=== PATIENT | female | born 1960 | race Caucasian/White ===

== ENCOUNTER 2020-07-07 07:45 | Outpatient (REF) | payer OTHER, SELFPAY ==
[2020-07-07 11:34] LABS: Hematocrit 40.1 % (37-47); Hemoglobin 13.2 g/dl (12.0-16.0); Mean Corpuscular HGB Conc 32.9 g/dl (31.0-35.0); Mean Corpuscular Hemoglobin 31.2 pg (27.0-33.0); Mean Corpuscular Volume 94.8 fL (80-98); Mean Platelet Volume 10.1 fL (9.4-12.3); Platelet Count 312 X10*3/uL (160-400); Red Blood Count 4.23 X10*6/uL (4.20-5.50); Red Cell Distribution Width 12.4 % (11.0-16.0); White Blood Count 3.6 X10*3/uL (4.8-10.8)
[2020-07-07 11:52] LABS: Alanine Aminotransferase 21 U/L (0-31); Albumin Level 4.2 g/dL (3.5-5.0); Alkaline Phosphatase 63 U/L (39-117); Anion Gap 11 (12-20); Aspartate Amino Transferase 24 U/L (5-31); Bilirubin Total 0.5 mg/dL (0.0-1.0); Blood Urea Nitrogen 12 mg/dL (9-16); Calcium 9.5 mg/dL (8.4-10.2); Carbon Dioxide 29 mmol/L (22-29); Chloride 105 mmol/L (96-108); Cholesterol 175 mg/dL; Estimated Glomerular Filt Rate > 60; Glucose Fasting 78 mg/dL (60-99); HDL Cholesterol 69 mg/dL; LDL Cholesterol Calculated 95 mg/dl; Potassium 4.1 mmol/L (3.3-5.1); Sodium 141 mmol/L (135-145); Triglycerides 58 mg/dL
== END 2020-07-07 07:46 | disposition home or self-care (01) ==
LOC: HO.HMGCLDS 07:45
PROVIDERS: PCP Internal Medicine; Visit Provider Internal Medicine
DX: Z00.00 Encounter for general adult medical examination without abnormal findings (principal); E78.00 Pure hypercholesterolemia, unspecified
CPT/HCPCS: 36415; 80053; 80061; 85027

== ENCOUNTER 2022-03-18 08:17 | Outpatient (REF) | payer OTHER, SELFPAY ==
[2022-03-18 11:23] LABS: MANUAL DIFF FLAG NO
[2022-03-18 11:35] LABS: Basophils Percent Auto 0.9 % (0-2); Eosinophils Absolute Auto 0.1 X10*3/uL (0.0-0.4); Eosinophils Percent Auto 3.2 % (0-4); Hematocrit 40.7 % (37.0-47.0); Hemoglobin 13.3 g/dl (12.0-16.0); Imm Gran Abs Auto 0.01 X10*3/uL (0.00-0.03); Imm Gran Pct Auto 0.2 % (0.0-0.4); Lymphocytes Absolute Auto 1.4 X10*3/uL (1.2-4.9); Mean Corpuscular HGB Conc 32.7 g/dl (31.0-35.0); Mean Corpuscular Hemoglobin 30.6 pg (27.0-33.0); Mean Corpuscular Volume 93.8 fL (80.0-98.0); Mean Platelet Volume 10.2 fL (9.4-12.3); Monocytes Absolute Auto 0.5 X10*3/uL (0.1-1.2); Monocytes Percent Auto 10.2 % (2-11); Neutrophils Absolute Auto 2.4 x10*3/uL (2.0-8.3); Neutrophils Percent Auto 53.5 % (45-73); Platelet Count 314 X10*3/uL (160-400); Red Blood Count 4.34 X10*6/uL (4.20-5.50); Red Cell Distribution Width 12.5 % (11.0-16.0); White Blood Count 4.4 X10*3/uL (4.8-10.8)
[2022-03-18 12:30] LABS: Erythrocyte Sedimentation Rate 7 MM/HR (0-20)
[2022-03-18 13:10] LABS: Alanine Aminotransferase 17 U/L (0-31); Albumin Level 4.2 g/dL (3.5-5.0); Albumin Level 4.3 g/dL (3.5-5.0); Alkaline Phosphatase 59 U/L (39-117); Anion Gap 12 (12-20); Anion Gap 13 (12-20); Aspartate Amino Transferase 23 U/L (5-31); Aspartate Amino Transferase 24 U/L (5-31); Bilirubin Total 0.6 mg/dL (0.0-1.0); Blood Urea Nitrogen 18 mg/dL (9-16); C Reactive Protein < 0.04 mg/dL (< or = 0.50); Calcium 9.7 mg/dL (8.4-10.2); Calcium 9.8 mg/dL (8.4-10.2); Carbon Dioxide 27 mmol/L (22-29); Carbon Dioxide 28 mmol/L (22-29); Chloride 106 mmol/L (96-108); Cholesterol 188 mg/dL; Estimated Glomerular Filt Rate > 60; Glucose Fasting 87 mg/dL (60-99); HDL Cholesterol 69 mg/dL; LDL Cholesterol Calculated 107 mg/dl; Potassium 4.2 mmol/L (3.3-5.1); Potassium 4.3 mmol/L (3.3-5.1); Sodium 142 mmol/L (135-145); Total Protein 7.1 g/dL (6.5-8.0); Triglycerides 62 mg/dL
[2022-03-18 13:16] LABS: TSH reflex Free T4 2.34 uIU/mL (0.32-4.0); Vitamin D 25-OH Total 64.7 ng/mL (>30)
== END 2022-03-18 08:18 | disposition home or self-care (01) ==
LOC: HO.HMGCLDS 08:17
PROVIDERS: Absent Provider Internal Medicine; PCP Internal Medicine; Visit Provider Internal Medicine
DX: Z00.00 Encounter for general adult medical examination without abnormal findings (principal); E78.00 Pure hypercholesterolemia, unspecified; E55.9 Vitamin D deficiency, unspecified; Z79.899 Other long term (current) drug therapy
CPT/HCPCS: 36415; 80051; 80053; 80061; 82040; 82306; 82310; 84443; 84450; 84460; 85025; 85652; 86140

== ENCOUNTER 2023-03-03 10:27 | Outpatient (AMB) | payer OTHER, SELFPAY ==
[2023-03-03 10:28] VITALS: BP 126/76; PULSE 69; O2SAT 100; BMI 19.6
--- NOTE | 2023-03-03 10:28 | MHC.PC.OV ---
Vital Signs 03/03/23 10:28 Height 5 ft 7 in Weight 125 lb BMI 19.6 BP 126/76 Blood Pressure Location Lt brachial Position Sitting Pulse 69 Pulse Source Pulse Oximeter Pulse Oximetry (%) 100 Oxygen Delivery Method Room Air Intake Visit Reasons: Annual Physical Intake Note: Pt is here today for PE. Allergies leflunomide [Arava] Adverse Reaction (Unknown, Verified 03/03/23 10:30) low wbc methotrexate Adverse Reaction (Unknown, Verified 03/03/23 10:30) low wbc NIFEdipine ER Adverse Reaction (Unknown, Uncoded 03/03/23 10:30) leg swelling, rash Medication List - Last Reconciled 03/03/23 by Kae Martell MD adalimumab 40 mg subcut Q2W compress.stocking,knee,reg,med As directed 10-20mmHg hydroxychloroquine 300 mg PO DAILY simvastatin 20 mg PO QPM Tobacco use date assessed: 03/03/23 Fall risk assessment: No Falls in past year Last assessed Fall Risk: 03/03/23 Dental Screening Dental Screen Date: 03/03/23 Did you have a dental visit in the last 12 months?: Yes Did you have a dental problem in the last 6 months where you did not have access to dental care?: No Was dental information given to patient?: Patient has dentist HPI Annual Physical HPI Details Patient presents for physical. She complains of lower extremity discomfort heaviness and swollen painful area on the right calf for few weeks. She started working compression knee-highs with some relief of her heaviness. Patient follows up with gang pusher for RA controlled on current medications. [facility] Medical History Annual physical exam Raynaud's disease Basal cell carcinoma Osteoporosis Rheumatoid arthritis Hypercholesterolemia Surgical History S/P hysterectomy H/O colonoscopy Family History Father Pacemaker Diabetes CVD (cardiovascular disease) Stroke Mother HTN (hypertension) Stroke Cancer Social History Housing: House Patient Tobacco Use Status: Never used Tobacco e-Cigarette/Vaping Use: Never Used Current occupational status: employed Cognitive needs: No Hearing needs: No Vision needs: Yes Questionnaire PHQ-9 Over the last 2 weeks, how often have you been bothered by any of the following problems? 1. Little interest or pleasure in doing things: not at all 2. Feeling down, depressed, or hopeless: not at all 3. Trouble falling or staying asleep, or sleeping too much: not at all 4. Feeling tired or having little energy: not at all 5. Poor appetite or overeating: not at all 6. Feeling bad about yourself - or that you are a failure or have let yourself or your family down: not at all 7. Trouble concentrating on things, such as reading the newspaper or watching television: not at all 8. Moving or speaking so slowly that other people could have noticed. Or the opposite - being so fidgety or restless that you have been moving around a lot more than usual: not at all 9. Thoughts that you would be better off or of hurting yourself in some way: not at all Total score: 0 Depression Screening Interpretation: Negative Depression Screening Done: Yes Source: Developed by Drs. Art Johnson, Alla Cooper, Rodríguez Wu and colleagues, with an educational tyrell from [employer]. Thrive Questionnaire Date Thrive assessed: 03/03/23 I am a: Patient What is your living situation today?: I have a steady place to live Within the past 12 months, did the food you bought not last and you didn't have the money to get more?: Never true Within the past 12 months, did you worry whether your food would run out before you got money to buy more?: Never true Do you have trouble paying for medicines?: No Do you have trouble getting transportation to medical appointments?: No Do you have trouble paying your heating and electricity bill?: No Do you have trouble taking care of your child, family member or friend?: No Do you have trouble with day-to-day activities such as bathing, preparing meals, shopping, managing finances, etc.?: No Are you currently unemployed and looking for a job?: No Are you interested in more education?: No Please select the resources that you would like help with: None AUDIT C Alcohol Use Questionnaire (AUDIT-C) 1. How often do you have a drink containing alcohol?: Monthly or less 2. How many drinks containing alcohol do you have on a typical day when you are drinking?: 1 or 2 3. How often do you have six or more drinks on one occasion?: Never Total Score: 1 DELFINO-7 AMB Questionnaire DELFINO-7 Date DELFINO - 7 assessed: 03/03/23 Feeling nervous, anxious, or on edge: 0 = Not at all Not being able to stop or control worryin = Not at all Worrying too much about different things: 0 = Not at all Trouble relaxin = Not at all Being so restless that it is hard to sit still: 0 = Not at all Becoming easily annoyed or irritable: 0 = Not at all Feeling afraid as if something awful might happen: 0 = Not at all Total DELFINO-7 score (0-4 normal; 5-9 mild; 10-14 moderate; 15-21 severe): 0 Source: Developed by Drs. Art Johnson, Alla Cooper, Rodríguez Wu and colleagues, with an educational tyrell from [employer]. Review of Systems Const All systems reviewed & are unremarkable except as noted in HPI and below Reports no additional complaints Eyes Reports no additional complaints ENT Reports no additional complaints Card Reports no additional complaints Resp Reports no additional complaints GI Reports no additional complaints Reports no additional complaints Physical exam (Primary Care) Vital Signs: Last Vital Signs Pulse 69 03/03/23 10:28 BP 126/76 03/03/23 10:28 Pulse Ox 100 03/03/23 10:28 Oxygen Delivery Method Room Air 03/03/23 10:28 BMI result Body Mass Index 19.6 Tobacco/Smoking Status: Tobacco use Status Tobacco use date assessed 03/03/23 03/03/23 10:35 Patient Tobacco Use Status Never used Tobacco 03/03/23 10:30 e-Cigarette/Vaping Use Never Used 03/03/23 10:30 PHQ-9: PHQ-9 Score PHQ-9: Total score 0 03/03/23 10:37 Depression Screening Interpretation: Negative Thrive Assessment: Date of Thrive Assessment Date Thrive assessed 03/03/23 03/03/23 10:37 Const General: no acute distress HENMT Head: Yes normal to inspection General nose exam: Normal external nose present Throat: Yes posterior oropharynx normal Neck Neck: Yes supple Resp Effort & Inspection: normal respiratory effort Auscultation: clear to auscultation bilaterally Cardio Rhythm: regular rhythm Heart sounds: S1 normal heart sound present and S2 normal heart sound present GI Inspection: Yes normal to inspection Palpation (GI): Soft to palpation Percussion: Yes normal to percussion Auscultation: normal bowel sounds Extrem Other: Chronic venous stasis discoloration on both lower extremities, right medial calf area 5 cm x 3cm erythema, swelling and tenderness Assessment and Plan Assessment & Plan (1) Localized swelling of right lower extremity: Code(s): R22.41 - Localized swelling, mass and lump, right lower limb Plan: Obtain venous Doppler to rule out DVT, if negative patient was advised to take ibuprofen 400 mg 3 times a day for 1 week for superficial thrombophlebitis (2) Varicose veins of bilateral lower extremities with pain: Code(s): I83.813 - Varicose veins of bilateral lower extremities with pain Plan: Referred to vascular surgeon, patient will continue to work compression knee-highs (3) Annual physical exam: Code(s): Z00.00 - Encounter for general adult medical examination without abnormal findings Plan: Well-balanced diet regular physical activity discussed with the patient, she is up to date with mammogram and will be referred to GI for colonoscopy (4) Hypercholesterolemia: Code(s): E78.00 - Pure hypercholesterolemia, unspecified Plan: Continue simvastatin Orders: Orders Complete Blood Count Auto Diff Today E78.00 - Pure hypercholesterolemia, unspecified, Z00.00 - Encounter for general adult medical examination without abnormal findings Complete Blood Count Auto Diff 365 Days E78.00 - Pure hypercholesterolemia, unspecified, Z00.00 - Encounter for general adult medical examination without abnormal findings Lipid Panel 365 Days E78.00 - Pure hypercholesterolemia, unspecified, Z00.00 - Encounter for general adult medical examination without abnormal findings US venous duplex LE RT Today R22.41 - Localized swelling, mass and lump, right lower limb Comprehensive [place]. Panel Fast Today E78.00 - Pure hypercholesterolemia, unspecified, Z00.00 - Encounter for general adult medical examination without abnormal findings Lipid Panel Today E78.00 - Pure hypercholesterolemia, unspecified, Z00.00 - Encounter for general adult medical examination without abnormal findings TSH reflex Free T4 Today E78.00 - Pure hypercholesterolemia, unspecified, Z00.00 - Encounter for general adult medical examination without abnormal findings Comprehensive [place]. Panel Fast 365 Days E78.00 - Pure hypercholesterolemia, unspecified, Z00.00 - Encounter for general adult medical examination without abnormal findings Referrals Vascular Surgery Referral I83.813 - Varicose veins of bilateral lower extremities with pain Gastroenterology Referral Z00.00 - Encounter for general adult medical examination without abnormal findings Medications: New simvastatin 10 mg PO DAILY 90 tabs 3RF Coding Level of Care Code Est Pt Prev Care >65y(24745) Diagnoses Localized swelling of right lower extremity R22.41 Varicose veins of bilateral lower extremities with pain I83.813 Annual physical exam Z00.00 Hypercholesterolemia E78.00
== END 2023-03-03 15:03 | disposition home or self-care (01) ==
PROVIDERS: PCP Internal Medicine; Visit Provider Internal Medicine
DX: R22.41 Localized swelling, mass and lump, right lower limb (principal); I83.813 Varicose veins of bilateral lower extremities with pain; Z00.00 Encounter for general adult medical examination without abnormal findings; E78.00 Pure hypercholesterolemia, unspecified
CPT/HCPCS: 99397

== ENCOUNTER 2023-03-03 12:06 | Outpatient (REF) | payer OTHER, SELFPAY | END 2023-03-03 12:07 | disposition home or self-care (01) | LOC: HO.US 12:06 | PROVIDERS: PCP Internal Medicine; Visit Provider Internal Medicine | DX: R22.41 Localized swelling, mass and lump, right lower limb (principal) | CPT/HCPCS: 93971 ==

== ENCOUNTER 2023-04-06 09:16 | Outpatient (AMB) | payer OTHER, SELFPAY ==
--- NOTE | 2023-04-06 09:17 | A.OFFVIS_ITS ---
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 Complaints include pain over varicosities, swelling of lower extremities, cramping, fatigue, and heaviness of the lower extremities. She is in particular concerned about the discoloration of bilateral calfs It has been affecting there daily activities including walking and exercise. It is noted more so in right leg. Patient notes previous ablation and sclerotherapy by Dr. Enamorado at [facility]. Patient denies any history of DVT/ PE. Patient denies any history of phlebitis. Trial of compression includes - [id number] They now present for vascular evaluation regarding their varicose veins. [facility] Medical History Annual physical exam Raynaud's disease Basal cell carcinoma Osteoporosis Rheumatoid arthritis Hypercholesterolemia Surgical History S/P hysterectomy H/O colonoscopy Family History Father Pacemaker Diabetes CVD (cardiovascular disease) Stroke Mother HTN (hypertension) Stroke Cancer Social History Housing: House Patient Tobacco Use Status: Never used Tobacco e-Cigarette/Vaping Use: Never Used Current occupational status: employed Cognitive needs: No Hearing needs: No Vision needs: Yes Review of Systems Const Reports as per HPI ENT Reports no additional complaints Card Denies chest pain, Denies chest pain at rest and Denies chest pain with activity Resp Denies chest congestion and Denies cough GI Reports no additional complaints Musc Details: pain over varicosities, aching of lower extremities, swelling, cramping, heaviness and tiredness, itching Denies abnormal gait Skin/Breast Reports pruritus and Denies wounds Neuro Reports no additional complaints and Denies abnormal gait Psych Denies no additional complaints Physical Exam Vital Signs: Last Vital Signs Pulse 68 04/06/23 09:26 BP 110/70 04/06/23 09:26 BMI result Body Mass Index 19.3 Const General: cooperative, healthy appearing and comfortable Orientation/consciousness: oriented to person, oriented to place and oriented to time Neck Carotids: no bruits Chest Chest palpation & inspection: normal inspection of the chest and normal palpation of entire chest wall Resp Effort & Inspection: normal respiratory effort and able to speak in complete sentences Cardio Rate: regular rate Heart sounds: S1 normal heart sound present and S2 normal heart sound present Peripheral pulses: Peripheral pulses 2+ throughout GI Inspection: Yes normal to inspection Skin Other: +2 edema, multiple spider telangiectasias and skin discoloration at bilateral ankles CEAP Classification C4 - skin color changes Ep - Etiology Primary As - superficial veins P - reflux General skin exam: dry skin Neuro General: oriented to person, oriented to place and oriented to time Extrem Right lower extremity: full ROM, normal capillary refill and edema Left lower extremity: full ROM, normal capillary refill and edema Psych Mental Status: mental status grossly normal Assessment & Plan Assessment & Plan (1) Varicose veins of right lower extremity with inflammation: Code(s): I83.11 - Varicose veins of right lower extremity with inflammation Plan: In short, the patient has evidence of venous insufficiency. She has had previous treatments and has been fairly compliant with her compression stockings. I have discussed the pathophysiology with the patient. In addition I have provided informational material regarding venous disease to the patient. We have discussed conservative measures including compression, elevation, and exercise. I have also provided a handout regarding appropriate use of compression stockings and where to purchase good compression stockings as well. I have taken the liberty of ordering venous insufficiency testing with the patient. This will give us more information as to her prior treatments and procedures. They will follow up with me after testing. The patient had an opportunity to ask questions regarding the treatment plan. All questions were answered. Imaging studies, laboratory studies and physical exam results were discussed and reviewed in detail. No major barriers to understanding were identified. The patient expressed understanding and agreement with the above treatment plan. The patient is aware they should contact our office by phone for worsening of the current condition or the appearance of new symptoms. Thank you for allowing me to participate in the vascular care of this patient. If you have any questions or concerns regarding the treatment for the above condition please do not hesitate to contact me. The office telephone contact is [phone]. This note is constructed using voice recognition software. While every effort has been made to ensure accuracy, car builder errors may have been included. Thank you for allowing me to participate in the care of your patient. Yours sincerely, Marlon Leiva MD, FACS, R.P.V.I. Orders: Orders US venous insuf bilat 1 Week I83.11 - Varicose veins of right lower extremity with inflammation Coding Level of Care Code New Pt Level 4 (79544) Diagnoses Varicose veins of right lower extremity with inflammation I83.11
[2023-04-06 09:26] VITALS: BP 110/70; PULSE 68; BMI 19.3
== END 2023-04-06 09:52 | disposition home or self-care (01) ==
PROVIDERS: PCP Internal Medicine; Visit Provider Surgery Vascular Surgery
DX: I83.11 Varicose veins of right lower extremity with inflammation (principal)
CPT/HCPCS: 99203

== ENCOUNTER → 2023-04-06 09:16 | Outpatient (BNVA) | payer OTHER, SELFPAY | PROVIDERS: PCP Internal Medicine; Visit Provider Surgery Vascular Surgery ==

== ENCOUNTER 2023-04-19 10:20 | Outpatient (REF) | payer OTHER, SELFPAY ==
--- NOTE | ~2023-04-19 | US_ITS ---
EXAMINATION: US LOWER EXTREMITY VENOUS (REFLUX EXAM), BILATERAL CLINICAL INFORMATION: Chronic disease insufficiency with lower extremity varicose veins with inflammation. History of prior ablation and sclerotherapy COMPARISON: None. TECHNIQUE: Color flow triplex imaging and compression Doppler was performed to evaluate both the deep and the superficial systems bilaterally. To evaluate the superficial system, the examination was performed in the upright position. Color-flow Doppler ultrasound and compression ultrasound were utilized. In addition, maneuvers were utilized to demonstrate reflux. FINDINGS: 1. DEEP VENOUS ULTRASOUND OF THE RIGHT LOWER EXTREMITY: Common Femoral Vein: Compressible, normal respiratory variation and augmented flow. Femoral Vein: Compressible, normal color flow and augmentation. Popliteal Vein: Compressible, normal augmentation. Deep Reflux: Deep venous reflux is seen in the superficial femoral vein measuring 1944 ms. Deep venous reflux seen in the popliteal vein measuring 1644 ms. There is no evidence of a Fernandes's cyst. 2. SUPERFICIAL ULTRASOUND WITH DOPPLER OF RIGHT LOWER EXTREMITY: GREAT SAPHENOUS VEIN: Saphenofemoral Junction: 0.4 cm; Reflux: 0 ms Proximal Thigh: 0.3 cm; Reflux: 0 ms Mid Thigh: 0.2 cm; Reflux: 0 ms Distal Thigh: 0.1 cm; Reflux: 0 ms At Knee: 0.2 cm; Reflux: 0 ms Proximal Calf: 0.2 cm; Reflux: 0 ms Mid Calf: 0.3 cm; Reflux: 1984 ms Distal Calf: 0.3 cm; Reflux: 1584 ms DUPLICATED MEDIAL GREAT SAPHENOUS VEIN: Diameter: None imaged Reflux: NA DUPLICATED LATERAL GREAT SAPHENOUS VEIN: Diameter: 0.2 cm Reflux: None SMALL SAPHENOUS VEIN: Saphenopopliteal Junction: 0.9 cm; Reflux: 2208 ms Mid: 0.6 cm; Reflux: 2248 ms Distal: 0.5 cm; Reflux: 1688 ms VEIN OF GIACOMINI: Size: NA Reflux: NA PERFORATORS: Location: Proximal and mid calf extending into the residual great saphenous vein Size: 0.2 to 0.4 cm Reflux: Ranging from 1032 ms to 2320 ms VARICOSITIES: Location: Proximal and mid posterior calf off the small saphenous vein and proximal medial calf off the great saphenous vein Size: 0.4 to 0.5 cm Reflux: Ranging from 924 to 2372 ms 3. DEEP VENOUS ULTRASOUND OF THE LEFT LOWER EXTREMITY: Common Femoral Vein: Compressible, normal respiratory variation and augmented flow. Femoral Vein: Compressible, normal color flow and augmentation. Popliteal Vein: Compressible, normal augmentation. Deep Reflux: There is no evidence of reflux in the deep system in either the common femoral vein, superficial femoral or the popliteal vein. There is no evidence of a Fernandes's cyst. 4. SUPERFICIAL ULTRASOUND WITH DOPPLER OF LEFT LOWER EXTREMITY: GREAT SAPHENOUS VEIN: Saphenofemoral Junction: 0.9 cm; Reflux: 0 ms Proximal Thigh: 0.7 cm; Reflux: 1980 ms Mid Thigh: 0.6 cm; Reflux: 2368 ms Distal Thigh: 0.9 cm; Reflux: 2360 ms At Knee: 0.9 cm; Reflux: 2040 ms Proximal Calf: 0.6 cm; Reflux: 2092 ms Mid Calf: 0.7 cm; Reflux: 2376 ms Distal Calf: 0.3 cm; Reflux: 2244 ms DUPLICATED MEDIAL GREAT SAPHENOUS VEIN: Diameter: None imaged Reflux: NA DUPLICATED LATERAL GREAT SAPHENOUS VEIN: Diameter: 0.3 cm Reflux: None SMALL SAPHENOUS VEIN: Saphenopopliteal Junction: 0.4 cm; Reflux: 0 ms Mid: 0.2 cm; Reflux: 2156 ms Distal: 0.3 cm; Reflux: 2104 ms VEIN OF GIACOMINI: Size: 0.2 cm Reflux: None PERFORATORS: Location: Medial distal thigh into the great saphenous vein and posterior distal calf into the small saphenous vein Size: Ranging from 0.2 to 0.6 cm Reflux: 2280 ms in the posterior calf and 2376 ms in the distal thigh VARICOSITIES: Location: Posterior mid calf off the small saphenous vein, medial mid to thigh, proximal and mid calf off the great saphenous veins Size: Ranging from 0.3 to 0.4 cm Reflux: Ranging from 676 ms to 3132 ms US/US venous insuf bilat IMPRESSION: Right: Previously treated great saphenous vein from the proximal thigh to the calf. Residual great saphenous vein in the calf is reconstituted by parking lot spotter veins and multiple varicose veins. Dilated right small saphenous vein severe reflux and multiple large varices. Left: Dilated left great saphenous vein with severe reflux. Dilated small saphenous vein with segmental reflux as described above. Multiple branching varicose veins off the great and small saphenous vein
== END 2023-04-19 10:21 | disposition home or self-care (01) ==
LOC: HO.US 10:20
PROVIDERS: PCP Internal Medicine; Visit Provider Surgery Vascular Surgery
DX: I83.11 Varicose veins of right lower extremity with inflammation (principal)
CPT/HCPCS: 93970

== ENCOUNTER 2023-05-23 13:52 | Outpatient (AMB) | payer OTHER, SELFPAY ==
--- NOTE | 2023-05-23 14:01 | MHC.OFFVIS ---
Intake Vital Signs 05/23/23 14:02 Height 5 ft 7 in Weight 123 lb BMI 19.3 Intake Visit Reasons: F/U US 04/19/23 Intake Note: follow up US for bilateral LE VV. Pt states that right LE is more discolored then the Left LE. Has bilateral LE swelling and has been wearing compression stockings, states that she has sensitivity where the discoloration is. Accompanied by: Self / Same As Patient Allergies leflunomide [Arava] Adverse Reaction (Unknown, Verified 05/23/23 14:07) low wbc methotrexate Adverse Reaction (Unknown, Verified 05/23/23 14:07) low wbc NIFEdipine ER Adverse Reaction (Unknown, Uncoded 05/23/23 14:07) leg swelling, rash HPI F/U US 04/19/23 HPI Details Very pleasant 63-year-old female presents for follow-up regarding venous insufficiency. She in general has some mild swelling but has these persistent skin color changed areas in the medial aspect of her calfs. He has been a source of pain and discomfort for her. Of note she does have a trial of compression stockings which have provided minimal relief. She now presents for follow-up with venous insufficiency testing. [facility] Medical History Annual physical exam Raynaud's disease Basal cell carcinoma Osteoporosis Rheumatoid arthritis Hypercholesterolemia Surgical History S/P hysterectomy H/O colonoscopy Family History Father Pacemaker Diabetes CVD (cardiovascular disease) Stroke Mother HTN (hypertension) Stroke Cancer Social History Housing: House Patient Tobacco Use Status: Never used Tobacco e-Cigarette/Vaping Use: Never Used Current occupational status: employed Cognitive needs: No Hearing needs: No Vision needs: Yes Review of Systems Const Reports as per HPI ENT Reports no additional complaints Card Denies chest pain, Denies chest pain at rest and Denies chest pain with activity Resp Denies chest congestion and Denies cough GI Reports no additional complaints Musc Details: pain over varicosities, aching of lower extremities, swelling, cramping, heaviness and tiredness, itching Denies abnormal gait Skin/Breast Reports pruritus and Denies wounds Neuro Reports no additional complaints and Denies abnormal gait Psych Denies no additional complaints Physical Exam Vital Signs: BMI result Body Mass Index 19.3 Const General: cooperative, healthy appearing and comfortable Orientation/consciousness: oriented to person, oriented to place and oriented to time Neck Carotids: no bruits Chest Chest palpation & inspection: normal inspection of the chest and normal palpation of entire chest wall Resp Effort & Inspection: normal respiratory effort and able to speak in complete sentences Cardio Rate: regular rate Heart sounds: S1 normal heart sound present and S2 normal heart sound present Peripheral pulses: Peripheral pulses 2+ throughout GI Inspection: Yes normal to inspection Skin Other: +2 edema, multiple spider telangiectasias CEAP Classification C4 - skin color changes Ep - Etiology Primary As - superficial veins P - reflux General skin exam: dry skin Neuro General: oriented to person, oriented to place and oriented to time Extrem Right lower extremity: full ROM, normal capillary refill and edema Left lower extremity: full ROM, normal capillary refill and edema Psych Mental Status: mental status grossly normal Results Reviewed Results Reviewed: Brief summary of venous insufficiency testing is as follows: right great saphenous vein: negative right small saphenous vein: Positive right accessory vein: none present left great saphenous vein: Positive left small saphenous vein: Positive left accessory vein: none present Please note there is no evidence of any venous aneurysms or significant tortuosity Assessment & Plan Assessment & Plan (1) Varicose veins of right lower extremity with inflammation: Code(s): I83.11 - Varicose veins of right lower extremity with inflammation Plan: This patient has varicose veins with inflammation. They continue to be a source of discomfort for the patient. The patient has tried conservative treatment with compression, leg elevation and exercise program for over 3 months time. They have been compliant with all treatment. This has provided minimal relief for the patient. I do not anticipate this course of treatment will alter the underlying etiology. The patient has been scheduled for lower extremity venous treatment inclusive of --- right small saphenous vein radiofrequency ablation. Risks, benefits, and complications of this procedure has been discussed in detail with the patient including but not limited to bleeding, infection, and the development of a DVT. The patient has demonstrated a clear understanding and has consented. We will schedule the patient as soon as possible. Thank you for allowing us to participate in this patient's care. If there are any questions or concerns please do not hesitate to contact us. Coding Level of Care Code Est Pt Level 4 (21660) Diagnoses Varicose veins of right lower extremity with inflammation I83.11
[2023-05-23 14:02] VITALS: BMI 19.3
== END 2023-05-23 14:40 | disposition home or self-care (01) ==
PROVIDERS: PCP Internal Medicine; Visit Provider Surgery Vascular Surgery
DX: I83.11 Varicose veins of right lower extremity with inflammation (principal)
CPT/HCPCS: 99214

== ENCOUNTER → 2023-05-23 13:52 | Outpatient (BNVA) | payer OTHER, SELFPAY | PROVIDERS: PCP Internal Medicine; Visit Provider Surgery Vascular Surgery ==

== ENCOUNTER 2023-07-07 10:50 | Outpatient (AMB) | payer OTHER, SELFPAY ==
--- NOTE | 2023-07-07 11:23 | MHC.OFFVIS ---
Intake Visit Reasons: Right SSV RFA Accompanied by: Self / Same As Patient Allergies leflunomide [Arava] Adverse Reaction (Unknown, Verified 07/07/23 11:) low wbc methotrexate Adverse Reaction (Unknown, Verified 07/07/23 11:) low wbc NIFEdipine ER Adverse Reaction (Unknown, Uncoded 05/23/23 14:07) leg swelling, rash PFSH Medical History (Reviewed 07/07/23 @ : by Nikki Turner) Annual physical exam Raynaud's disease Basal cell carcinoma Osteoporosis Rheumatoid arthritis Hypercholesterolemia Surgical History (Reviewed 07/07/23 @ by Nikki Turner) S/P hysterectomy H/O colonoscopy Family History (Reviewed 07/07/23 @ by Nikki Turner) Father Pacemaker Diabetes CVD (cardiovascular disease) Stroke Mother HTN (hypertension) Stroke Cancer Social History (Reviewed 07/07/23 @ : by Nikki Turner) Housing: House Patient Tobacco Use Status: Never used Tobacco e-Cigarette/Vaping Use: Never Used Current occupational status: employed Cognitive needs: No Hearing needs: No Vision needs: Yes Office Procedures Vascular Office Procedure Details Details: Diagnosis: Varicose veins with inflammation of right leg Procedure: Endovenous radiofrequency ablation of the right small saphenous vein(s) of the lower extremity with Venclose Anesthesia: Local infiltration 5 cc, Tumescent 250 cc. Estimated Blood Loss: Minimal The patient was transferred to the procedure suite and the insufficient small saphenous vein was mapped by ultrasound and diagrammed on the overlying skin. The depth and diameter of the vein(s) to be treated was documented. The varicose tributary veins and suitable access sites were identified and mapped as well. The patient was then positioned prone on the procedure table. The affected limb was prepped and draped in the usual sterile fashion. The RF catheter was placed on the sterile field, flushed and wiped down, prepared, and connected by a sterile cable. The patient was placed in a prone position and local anesthesia was instilled in the skin overlying the access site. A skin incision was made overlying the identified and mapped small saphenous vein entry site. The vein was accessed using ultrasound guidance and the Seldinger technique, a guide wire was introduced through the needle, which was then exchanged over the guide wire for a 6F sheath, which was secured in place. The guide wire was removed and the sheath was flushed. The RF catheter was placed into the vein through the sheath and preferentially, imaging was used to place the catheter tip just inferior to the saphenopopliteal junction. Additionally, it was confirmed by ultrasound guidance that the catheter tip was also placed a minimum of 1.5cm distal to the saphenopopliteal junction. After the RF catheter position was verified by ultrasound, tumescent anesthesia was infiltrated, under ultrasound guidance, precisely into the perivenous compartment along the entire length of vein from the entry site to the saphenofemoral junction until a halo of fluid was noted around the vein. The patient was appropriately position. After RF catheter position was again confirmed with ultrasound imaging, and under direct external compression along the length of the heating element, RF energy was applied. The vein was segmentally ablated by heating a 10 cm segment and then indexing the catheter forward by 9.5 cm until the treatment length is completed. Device temperature was maintained at 120 plus or minus 5 degrees C with an initial power level of 4W/cm dropping to below 2W/cm for each treatment. Total vein length treated 20 cm Total cycles of RF 4. Repeat ultrasound of the saphenous vein was performed, confirming successful treatment. The catheter and sheath were withdrawn and hemostasis established with direct pressure. After assuring hemostasis, the skin incision over the saphenous vein was closed with a bandage and a compression wrap was applied from the level of the foot to the most proximal level of the thigh. Discharge instructions were given to the patient inclusive of follow-up ultrasound and recommended follow-up with 51409 - Endovenous RF, 1st Vein All charges added?: Procedure code (CPT) selection complete Assessment & Plan Assessment & Plan (1) Varicose veins of right lower extremity with inflammation: Comment: 07/07/2023 - right small saphenous vein radiofrequency ablation Code(s): I83.11 - Varicose veins of right lower extremity with inflammation Category: Medical Plan: See op note Coding Level of Care Code Procedure Only Diagnoses Varicose veins of right lower extremity with inflammation I83.11 CPT Codes Details - Vascular 1: 01286 - Endovenous RF, 1st Vein ([id number])
== END 2023-07-07 12:18 | disposition home or self-care (01) ==
PROVIDERS: PCP Internal Medicine; Visit Provider Surgery Vascular Surgery
DX: I83.11 Varicose veins of right lower extremity with inflammation (principal)
CPT/HCPCS: 36475

== ENCOUNTER → 2023-07-07 10:50 | Outpatient (BNVA) | payer OTHER, SELFPAY | PROVIDERS: PCP Internal Medicine; Visit Provider Surgery Vascular Surgery | DX: I83.11 Varicose veins of right lower extremity with inflammation (principal) | CPT/HCPCS: 36475 ==

== ENCOUNTER 2023-07-10 13:26 | Outpatient (REF) | payer OTHER, SELFPAY ==
--- NOTE | ~2023-07-10 | US_ITS ---
EXAMINATION: TRIPLEX SCANNING OF RIGHT LOWER EXTREMITY; SUPERFICIAL ULTRASOUND WITH DOPPLER OF RIGHT LOWER EXTREMITY CLINICAL INFORMATION: Status post RF ablation of a small saphenous vein originally performed on 07/07/2023. COMPARISON: Preprocedure studies. TECHNIQUE: Color flow triplex imaging and compression Doppler were performed as well as superficial ultrasound with Doppler. FINDINGS: TRIPLEX SCANNING OF RIGHT LOWER EXTREMITY: Respiratory variation, normal compression and augmented flow are noted throughout the lower extremity. The visualized common femoral vein, femoral vein, profunda femoral vein, popliteal vein and the calf veins show no evidence of deep venous thrombosis. There is no evidence of Fernandes's cyst. SUPERFICIAL ULTRASOUND WITH DOPPLER OF RIGHT LOWER EXTREMITY: The right great saphenous vein is occluded to a level of approximately 1 cm from the saphenofemoral junction status post prior ablation. There is no extension of thrombus into the common femoral vein. The small saphenous vein contains more acute appearing thrombus and is occluded status post ablation. No extension of clot seen into the popliteal vein. US/US venous duplex LE RT IMPRESSION: 1. Normal triplex scan of the right without evidence of deep venous thrombosis. 2. Excellent appearance status post ablation of the right small saphenous vein as well as prior ablation of the right great saphenous vein.
== END 2023-07-10 13:27 | disposition home or self-care (01) ==
LOC: HO.US 13:26
PROVIDERS: PCP Internal Medicine; Visit Provider Surgery Vascular Surgery
DX: M79.604 Pain in right leg (principal); Z98.890 Other specified postprocedural states
CPT/HCPCS: 93971

== ENCOUNTER 2023-08-03 12:58 | Outpatient (AMB) | payer OTHER, SELFPAY ==
[2023-08-03 13:00] VITALS: BMI 19.3
--- NOTE | 2023-08-03 13:00 | MHC.OFFVIS ---
Vital Signs 08/03/23 13:00 Height 5 ft 7 in Weight 123 lb BMI 19.3 Intake Visit Reasons: 2 week follow up right SSV RFA Intake Note: 2 week Right SSV RFA 07/07/23, Pt states she is doing well, no issues s/p RFA. Left LE also has VV and discoloration. Accompanied by: Self / Same As Patient Allergies leflunomide [Arava] Adverse Reaction (Unknown, Verified 08/03/23 13:03) low wbc methotrexate Adverse Reaction (Unknown, Verified 08/03/23 13:03) low wbc NIFEdipine ER Adverse Reaction (Unknown, Uncoded 08/03/23 13:03) leg swelling, rash HPI HPI 2 week follow up right SSV RFA: Details: Very pleasant 63-year-old female status post right small saphenous vein ablation. Reports that she had no postprocedure issues. Overall feeling fairly well. Overall swelling and discomfort have improved slightly. She does have a lot of spider telangiectasias which are still present. She at the current time is stable with her right leg she is concerned about her left lower extremity [facility] Medical History Annual physical exam Raynaud's disease Basal cell carcinoma Osteoporosis Rheumatoid arthritis Hypercholesterolemia Surgical History S/P hysterectomy H/O colonoscopy Family History Father Pacemaker Diabetes CVD (cardiovascular disease) Stroke Mother HTN (hypertension) Stroke Cancer Social History Housing: House Patient Tobacco Use Status: Never used Tobacco e-Cigarette/Vaping Use: Never Used Current occupational status: employed Cognitive needs: No Hearing needs: No Vision needs: Yes Review of Systems Const Reports as per HPI ENT Reports no additional complaints Card Denies chest pain, Denies chest pain at rest and Denies chest pain with activity Resp Denies chest congestion and Denies cough GI Reports no additional complaints Musc Details: pain over varicosities, aching of lower extremities, swelling, cramping, heaviness and tiredness, itching Denies abnormal gait Skin/Breast Reports pruritus and Denies wounds Neuro Reports no additional complaints and Denies abnormal gait Psych Denies no additional complaints Physical Exam Vital Signs: BMI result Body Mass Index 19.3 Const General: cooperative, healthy appearing and comfortable Orientation/consciousness: oriented to person, oriented to place and oriented to time Neck Carotids: no bruits Chest Chest palpation & inspection: normal inspection of the chest and normal palpation of entire chest wall Resp Effort & Inspection: normal respiratory effort and able to speak in complete sentences Cardio Rate: regular rate Heart sounds: S1 normal heart sound present and S2 normal heart sound present Peripheral pulses: Peripheral pulses 2+ throughout GI Inspection: Yes normal to inspection Skin Other: +2 edema, large rope-like varicosities greater than 4 mm CEAP Classification C4 - skin color changes Ep - Etiology Primary As - superficial veins P - reflux General skin exam: dry skin Neuro General: oriented to person, oriented to place and oriented to time Extrem Right lower extremity: full ROM, normal capillary refill and edema Left lower extremity: full ROM, normal capillary refill and edema Psych Mental Status: mental status grossly normal Assessment & Plan Assessment & Plan (1) Varicose veins of right lower extremity with inflammation: Comment: 07/07/2023 - right small saphenous vein radiofrequency ablation Code(s): I83.11 - Varicose veins of right lower extremity with inflammation Category: Medical Plan: In short she is done well with right lower extremity venous ablation. Would recommend continued conservative measures including compression elevation and exercise (2) Varicose veins of left lower extremity with inflammation: Code(s): I83.12 - Varicose veins of left lower extremity with inflammation Category: Medical Plan: She does have reflux in the left GSV. At the current time she has elected to manage this conservatively. We did give her another prescription for compression stockings. She will follow up with us in approximately 3 months' time for re-evaluation of the left GSV. Thank you for allowing us to assist in her care Coding Level of Care Code Est Pt Level 3 (28360) Diagnoses Varicose veins of right lower extremity with inflammation I83.11 Varicose veins of left lower extremity with inflammation I83.12
== END 2023-08-03 13:22 | disposition home or self-care (01) ==
LOC: HO.HVS 12:58
PROVIDERS: PCP Internal Medicine; Visit Provider Surgery Vascular Surgery
DX: I83.11 Varicose veins of right lower extremity with inflammation (principal); I83.12 Varicose veins of left lower extremity with inflammation
CPT/HCPCS: 99213

== ENCOUNTER → 2023-08-03 12:58 | Outpatient (BNVA) | payer OTHER, SELFPAY | PROVIDERS: PCP Internal Medicine; Visit Provider Surgery Vascular Surgery ==

== ENCOUNTER 2023-11-06 08:20 | Day surgery (SDC) | payer OTHER, SELFPAY ==
[2023-11-02 14:16] VITALS: BMI 19.3
[2023-11-06 09:03] VITALS: BMI 18.8
[2023-11-06 09:04] VITALS: BP 151/81; PULSE 79; RESP 20; TEMP 36.9; O2SAT 98
--- NOTE | 2023-11-06 09:15 | HO.ANESPROP2 ---
Documented by User: Mirna Roman NP 11/03/23 10:28 HPI - Anesthesia Eval Consult details Narrative: 63yo F for Colonoscopy PMFSH Active Problems Active Problems: All Active Problems Varicose veins of left lower extremity with inflammation (Acute) Varicose veins of right lower extremity with inflammation (Acute) Varicose veins of bilateral lower extremities with pain (Acute) Localized swelling of right lower extremity (Acute) Hx of screening mammography (Acute) Rheumatoid arthritis (Acute) Basal cell carcinoma (Acute) Annual physical exam (Acute) Hypercholesterolemia (Acute) Past Medical History Medical History Annual physical exam Raynaud's disease Basal cell carcinoma Osteoporosis Rheumatoid arthritis Hypercholesterolemia Family History Family History Father Pacemaker Diabetes CVD (cardiovascular disease) Stroke Mother HTN (hypertension) Stroke Cancer Surgical History Surgical History S/P hysterectomy H/O colonoscopy Social History Social History Housing: House Patient Tobacco Use Status: Never used Tobacco e-Cigarette/Vaping Use: Never Used Have you been hit, kicked, punched, or otherwise hurt by someone within the past year? If so, by whom?: No Are you DNR?: No Advance Directives: No Advance Directives Information Provided: Yes Nutrition Risks: No Nutritional Risk Current occupational status: employed Cognitive needs: No Hearing needs: No Vision needs: Yes Meds Allergies Allergy/AdvReac Type Severity Reaction Status Date / Time nifedipine Allergy Intermediate leg Verified 11/02/23 14:17 swelling/rash leflunomide [Arava] AdvReac Intermediate low wbc Verified 11/02/23 14:17 methotrexate AdvReac Intermediate low wbc Verified 11/02/23 14:17 Home Medications ?Medication ?Instructions ?Recorded ?Confirmed ?Last Taken ?Type adalimumab 40 mg/0.4 mL 40 mg subcut Q2W 05/11/20 11/02/23 Unknown History subcutaneous pen kit hydroxychloroquine 200 mg tablet 300 mg PO DAILY 05/11/20 11/02/23 Unknown History calcium 167 mg-vitamin D3 1.67 cap PO 05/23/23 Unknown History mcg-magnesium 83 mg capsule cholecalciferol (vitamin D3) 10 10 mcg PO DAILY 05/23/23 11/02/23 Unknown History mcg (400 unit) capsule multivitamin (One Daily 1 tab PO DAILY 05/23/23 11/02/23 Unknown History Multivitamin tablet) Exam Height,Weight and Vital Signs: Height 5 ft 8 in Weight 57.606 kg Assessment and Plan Assessment Anesthesia Assessment: Chart Reviewed Documented by User: Nikki Dumont DO 11/06/23 09:16 [facility] Past Medical History Medical History Annual physical exam Raynaud's disease Basal cell carcinoma Osteoporosis Rheumatoid arthritis Hypercholesterolemia Family History Family History Father Pacemaker Diabetes CVD (cardiovascular disease) Stroke Mother HTN (hypertension) Stroke Cancer Family history of problems with anesthesia: No Surgical History Surgical History S/P hysterectomy H/O colonoscopy History of Problems with Anesthesia: No Social History Social History Housing: House Patient Tobacco Use Status: Never used Tobacco e-Cigarette/Vaping Use: Never Used Have you been hit, kicked, punched, or otherwise hurt by someone within the past year? If so, by whom?: No Are you DNR?: No Advance Directives: No Advance Directives Information Provided: Yes Nutrition Risks: No Nutritional Risk Current occupational status: employed Cognitive needs: No Hearing needs: No Vision needs: Yes Meds Allergies Allergy/AdvReac Type Severity Reaction Status Date / Time nifedipine Allergy Intermediate leg Verified 11/02/23 14:17 swelling/rash leflunomide [Arava] AdvReac Intermediate low wbc Verified 11/02/23 14:17 methotrexate AdvReac Intermediate low wbc Verified 11/02/23 14:17 Home Medications ?Medication ?Instructions ?Recorded ?Confirmed ?Last Taken ?Type adalimumab 40 mg/0.4 mL 40 mg subcut Q2W 05/11/20 11/02/23 Unknown History subcutaneous pen kit hydroxychloroquine 200 mg tablet 300 mg PO DAILY 05/11/20 11/02/23 Unknown History calcium 167 mg-vitamin D3 1.67 cap PO 05/23/23 Unknown History mcg-magnesium 83 mg capsule cholecalciferol (vitamin D3) 10 10 mcg PO DAILY 05/23/23 11/02/23 Unknown History mcg (400 unit) capsule multivitamin (One Daily 1 tab PO DAILY 05/23/23 11/02/23 Unknown History Multivitamin tablet) Exam Exam Date and Time: 11/06/23 0915 Height,Weight and Vital Signs: Height 5 ft 8 in Weight 57.606 kg Vital Signs Temperature 98.5 F 11/06/23 09:04 Pulse Rate 79 11/06/23 09:04 Respiratory Rate 20 11/06/23 09:04 Blood Pressure 151/81 H 11/06/23 09:04 Pulse Oximetry 98 11/06/23 09:04 Oxygen Delivery Method Room Air 11/06/23 09:04 Temperature 98.5 F 11/06/23 09:04 Pulse Rate 79 11/06/23 09:04 Respiratory Rate 20 11/06/23 09:04 Blood Pressure 151/81 H 11/06/23 09:04 Pulse Oximetry 98 11/06/23 09:04 Oxygen Delivery Method Room Air 11/06/23 09:04 Airway Mallampati Class: I TM Dist: >3cm Neck ROM: Full Loose/Missing/Broken Teeth: No (patient denies any loose or broken teeth) Heart: S1S2 Lungs: CTAB Assessment and Plan Assessment Anesthesia Assessment: Anesthesia Plan Discussed and Chart Reviewed Final Anesthetic Review Family History of Problems with Anesthesia: No History of Problems with Anesthesia: No NPO: Yes ASA Class: II Final Preanesthetic Review: No Changes in Pt Med Stat, Meds/Allgs Chart Reviewed, Consent Obtained/Reviewed and Anes Risks/Benef Reviewed Patient Risk: Low Procedure Risk: Low Anesthetic Plan Anesthetic Plan: MAC: and Agree w/ Assess. and Plan Disposition: Standard PACU
[2023-11-06] MEDS: Sodium Phosphate,Mono-Dibasic 133 ML ENEMA PR (09:19)
[2023-11-06] MEDS: Lactated Ringers 1,000 ML 100 ML IVCONT (09:29)
[2023-11-06 11:02] VITALS: BP 121/73; PULSE 72; RESP 16; TEMP 36.4; O2SAT 100
--- NOTE | 2023-11-06 11:05 | P.BOP_ITS ---
Brief Operative Note Date of Service: 11/06/23 Pre-op diagnosis: Screening Post-op diagnosis: other (Diverticulosis, poor prep) Procedure: Colonoscopy to the distal transverse colon Surgeon: Art Escamilla MD Anesthesia: MAC Was an Meter Supervisor used for this Procedure?: No Estimated blood loss (mL): 0 Pathology: none sent Condition: stable Disposition: PACU
[2023-11-06 11:17] VITALS: BP 127/91; PULSE 72; RESP 16; O2SAT 100
[2023-11-06 11:32] VITALS: BP 145/79; PULSE 67; RESP 18; TEMP 36.6; O2SAT 100
--- NOTE | 2023-11-06 11:34 | OP_ITS ---
DATE OF SERVICE: 11/06/2023 SURGEON: Art Escamilla MD INDICATIONS: The patient presents for evaluation of colorectal cancer screening. Full consent has been obtained from her for this, including risks of bleeding and perforation. PREOPERATIVE DIAGNOSIS: Colorectal cancer screening. POSTOPERATIVE DIAGNOSIS: PROCEDURE PERFORMED: Colonoscopy to the area of the distal transverse colon. ESTIMATED BLOOD LOSS: COMPLICATIONS: ANESTHESIA: Monitored anesthesia care. ASSISTANTS: SPECIMENS: POSTOPERATIVE DIAGNOSES: Colorectal cancer screening, incomplete colonoscopy to the transverse colon due to poor prep and significant diverticulosis. DESCRIPTION OF PROCEDURE: The patient was placed in the left lateral decubitus position. The digital rectal exam revealed no abnormalities. The Olympus video pediatric colonoscope was then entered into the rectum. Advancement past the sigmoid colon was very difficult due to significant diverticular disease, adhesions, and poor prep. I was able to finally enter the transverse colon judging anatomically, but there was poor prep proximal to that as well. Therefore, the scope was not advanced as I did not think would be safe nor efficacious to be able to see anything. The scope was then withdrawn slowly, assessing all mucosal surfaces carefully as possible, but prep was still very limited. I did not visualize any sign of polyps or masses. Again, there was a significant amount of diverticular disease. In the rectum, scope was retroflexed, visualizing portions of the rectum that appeared normal and without any sign of mucosal abnormalities. The scope was straightened and withdrawn from the patient. She tolerated the procedure well and was returned to the recovery area in stable condition. IMPRESSION: Limited colonoscopy to the transverse colon due to poor prep, diverticulosis and adhesions. PLAN: The patient will attempt to prep with a 2-day prep in the future and repeat the colonoscopy as long as she is agreeable. This has been discussed with her . MD CHUCK Gupta/LINAL / [id number]
== END 2023-11-06 12:26 | disposition home or self-care (01) ==
PROVIDERS: PCP Internal Medicine; Visit Provider Internal Medicine
PROC: 0DJD8ZZ Inspection of Lower Intestinal Tract, Via Natural or Artificial Opening Endoscopic (ICD-10-PCS; CPT 45378; principal; 2023-11-06 09:30)
DX: Z12.11 Encounter for screening for malignant neoplasm of colon (principal); K57.30 Diverticulosis of large intestine without perforation or abscess without bleeding; E78.5 Hyperlipidemia, unspecified; M06.9 Rheumatoid arthritis, unspecified; Z79.620 Long term (current) use of immunosuppressive biologic; Z79.899 Other long term (current) drug therapy; Z98.890 Other specified postprocedural states
CPT/HCPCS: 45378; J2704

== ENCOUNTER 2023-11-07 08:55 | Outpatient (AMB) | payer OTHER, SELFPAY ==
--- NOTE | 2023-11-07 09:00 | A.OFFVIS_ITS ---
Intake Visit Reasons: 3m R leg check Intake Note: Patient presents for 3 month leg check. No complaints. Allergies nifedipine Allergy (Intermediate, Verified 11/07/23 09:04) leg swelling/rash leflunomide [Arava] Adverse Reaction (Intermediate, Verified 11/07/23 09:04) low wbc methotrexate Adverse Reaction (Intermediate, Verified 11/07/23 09:04) low wbc HPI HPI 3m R leg check: Details: Very pleasant 63-year-old female presents for routine surveillance check regarding her lower extremities. She had previously undergone right small saphenous vein ablation with us in reports that she is doing fairly well with that. She is now concerned about her left leg. It has been a continued source of pain and discomfort for her. She does note some swelling. She has been consistent with her compression stockings over the last 3 months with minimal relief. She now presents for routine follow-up. [facility] Medical History Raynaud's disease Basal cell carcinoma Osteoporosis Rheumatoid arthritis Hypercholesterolemia Surgical History S/P hysterectomy H/O colonoscopy Family History Father Pacemaker Diabetes CVD (cardiovascular disease) Stroke Mother HTN (hypertension) Stroke Cancer Social History Housing: House Patient Tobacco Use Status: Never used Tobacco e-Cigarette/Vaping Use: Never Used Current occupational status: employed Cognitive needs: No Hearing needs: No Vision needs: Yes Review of Systems Const Reports as per HPI ENT Reports no additional complaints Card Denies chest pain, Denies chest pain at rest and Denies chest pain with activity Resp Denies chest congestion and Denies cough GI Reports no additional complaints Musc Details: pain over varicosities, aching of lower extremities, swelling, cramping, heaviness and tiredness, itching Denies abnormal gait Skin/Breast Reports pruritus and Denies wounds Neuro Reports no additional complaints and Denies abnormal gait Psych Denies no additional complaints Physical Exam Const General: cooperative, healthy appearing and comfortable Orientation/consciousness: oriented to person, oriented to place and oriented to time Neck Carotids: no bruits Chest Chest palpation & inspection: normal inspection of the chest and normal palpation of entire chest wall Resp Effort & Inspection: normal respiratory effort and able to speak in complete sentences Cardio Rate: regular rate Heart sounds: S1 normal heart sound present and S2 normal heart sound present Peripheral pulses: Peripheral pulses 2+ throughout GI Inspection: Yes normal to inspection Skin Other: +2 edema, large rope-like varicosities greater than 4 mm CEAP Classification C4 - skin color changes Ep - Etiology Primary As - superficial veins P - reflux General skin exam: dry skin Neuro General: oriented to person, oriented to place and oriented to time Extrem Right lower extremity: full ROM, normal capillary refill and edema Left lower extremity: full ROM, normal capillary refill and edema Psych Mental Status: mental status grossly normal Results Reviewed Results Reviewed: Brief summary of venous insufficiency testing is as follows: right great saphenous vein: Positive at calf right small saphenous vein: Ablated right accessory vein: none present left great saphenous vein: Positive left small saphenous vein: Positive left accessory vein: none present Please note there is no evidence of any venous aneurysms or significant tortuosity Assessment & Plan Assessment & Plan (1) Varicose veins of left lower extremity with inflammation: Code(s): I83.12 - Varicose veins of left lower extremity with inflammation Category: Medical Plan: This patient has varicose veins with inflammation. They continue to be a source of discomfort for the patient. The patient has tried conservative treatment with compression, leg elevation and exercise program for over 3 months time. They have been compliant with all treatment. This has provided minimal relief for the patient. I do not anticipate this course of treatment will alter the underlying etiology. The patient has been scheduled for lower extremity venous treatment inclusive of --- left great saphenous vein radiofrequency ablation. Risks, benefits, and complications of this procedure has been discussed in detail with the patient including but not limited to bleeding, infection, and the development of a DVT. The patient has demonstrated a clear understanding and has consented. We will schedule the patient as soon as possible. Thank you for allowing us to participate in this patient's care. If there are any questions or concerns please do not hesitate to contact us. Coding Level of Care Code Est Pt Level 4 (80291) Diagnoses Varicose veins of left lower extremity with inflammation I83.12
== END 2023-11-07 09:29 | disposition home or self-care (01) ==
PROVIDERS: PCP Internal Medicine; Visit Provider Surgery Vascular Surgery
DX: I83.12 Varicose veins of left lower extremity with inflammation (principal)
CPT/HCPCS: 99214

== ENCOUNTER → 2023-11-07 08:55 | Outpatient (BNVA) | payer OTHER, SELFPAY | PROVIDERS: PCP Internal Medicine; Visit Provider Surgery Vascular Surgery ==

== ENCOUNTER 2023-12-08 08:24 | Outpatient (AMB) | payer OTHER, SELFPAY ==
--- NOTE | 2023-12-08 08:33 | MHC.OFFVIS ---
Vital Signs 12/08/23 08:33 Height 5 ft 8 in Intake Visit Reasons: Left GSV RFA Accompanied by: Self / Same As Patient Allergies nifedipine Allergy (Intermediate, Verified 12/08/23 08:33) leg swelling/rash leflunomide [Arava] Adverse Reaction (Intermediate, Verified 12/08/23 08:33) low wbc methotrexate Adverse Reaction (Intermediate, Verified 12/08/23 08:33) low wbc PFSH Medical History Raynaud's disease Basal cell carcinoma Osteoporosis Rheumatoid arthritis Hypercholesterolemia Surgical History S/P hysterectomy H/O colonoscopy Family History Father Pacemaker Diabetes CVD (cardiovascular disease) Stroke Mother HTN (hypertension) Stroke Cancer Social History Housing: House Patient Tobacco Use Status: Never used Tobacco e-Cigarette/Vaping Use: Never Used Current occupational status: employed Cognitive needs: No Hearing needs: No Vision needs: Yes Office Procedures Vascular Office Procedure Details Details: Diagnosis: Varicose veins with inflammation of left leg Procedure: Endovenous radiofrequency ablation of the left great saphenous vein(s) of the lower extremity with Venclose RF ablation Anesthesia: Local infiltration 5 cc, Tumescent 450 cc. Estimated Blood Loss: Minimal The patient was transferred to the procedure suite and the insufficient saphenous vein was mapped by ultrasound and diagrammed on the overlying skin. The depth and diameter of the vein(s) to be treated was documented. The varicose tributary veins and suitable access sites were identified and mapped as well. The patient was then positioned supine on the procedure table. The affected limb was prepped and draped in the usual sterile fashion. The RF catheter was placed on the sterile field, flushed and wiped down, prepared, and connected by a sterile cable. The patient was placed in a supine position and local anesthesia was instilled in the skin overlying the access site. A skin incision was made overlying the identified and mapped great saphenous vein entry site. The vein was accessed using ultrasound guidance and the Seldinger technique, a guide wire was introduced through the needle, which was then exchanged over the guide wire for a 6F sheath, which was secured in place. The guide wire was removed and the sheath was flushed. The RF catheter was placed into the vein through the sheath and preferentially, imaging was used to place the catheter tip just inferior to the superficial epigastric vein to preserve normal physiological flow in that vein. Additionally, it was confirmed by ultrasound guidance that the catheter tip was also placed a minimum of 1.5cm distal to the saphenofemoral junction. After the RF catheter position was verified by ultrasound, tumescent anesthesia was infiltrated, under ultrasound guidance, precisely into the perivenous compartment along the entire length of vein from the entry site to the saphenofemoral junction until a halo of fluid was noted around the vein. The patient was appropriately position. After RF catheter position was again confirmed with ultrasound imaging, and under direct external compression along the length of the heating element, RF energy was applied. The vein was segmentally ablated by heating a 10 cm segment and then indexing the catheter forward by 9.5 cm until the treatment length is completed. Device temperature was maintained at 120 plus or minus 5 degrees C with an initial power level of 4W/cm dropping to below 2W/cm for each treatment. Total vein length treated 45 cm Total cycles of RF 7. Repeat ultrasound of the saphenous vein was performed, confirming successful treatment. The catheter and sheath were withdrawn and hemostasis established with direct pressure. After assuring hemostasis, the skin incision over the saphenous vein was closed with a steristip and a compression wrap was applied from the level of the foot to the most proximal level of the thigh. Discharge instructions were given to the patient inclusive of follow-up ultrasound and recommended follow-up with us. 81682 - Endovenous RF, 1st Vein All charges added?: Procedure code (CPT) selection complete Assessment & Plan Assessment & Plan (1) Varicose veins of left lower extremity with inflammation: Comment: 12/08/2023 - left great saphenous vein radiofrequency ablation Code(s): I83.12 - Varicose veins of left lower extremity with inflammation Category: Medical Plan: See op note Coding Level of Care Code Procedure Only Diagnoses Varicose veins of left lower extremity with inflammation I83.12 CPT Codes Details - Vascular 1: 71914 - Endovenous RF, 1st Vein ([id number])
== END 2023-12-08 09:21 | disposition home or self-care (01) ==
PROVIDERS: PCP Internal Medicine; Visit Provider Surgery Vascular Surgery
DX: I83.12 Varicose veins of left lower extremity with inflammation (principal)
CPT/HCPCS: 36475

== ENCOUNTER → 2023-12-08 08:24 | Outpatient (BNVA) | payer OTHER, SELFPAY | PROVIDERS: PCP Internal Medicine; Visit Provider Surgery Vascular Surgery | DX: I83.12 Varicose veins of left lower extremity with inflammation (principal) | CPT/HCPCS: 36475; J2003; J2004 ==

== ENCOUNTER 2023-12-11 15:24 | Outpatient (REF) | payer OTHER, SELFPAY ==
--- NOTE | ~2023-12-11 | US_ITS ---
EXAMINATION: TRIPLEX SCANNING OF LEFT LOWER EXTREMITY; SUPERFICIAL ULTRASOUND WITH DOPPLER OF LEFT LOWER EXTREMITY CLINICAL INFORMATION: Status post radiofrequency ablation of the left great saphenous vein Originally performed on 12/08/2023. COMPARISON: preprocedure studies. TECHNIQUE: Color flow triplex imaging and compression Doppler were performed as well as superficial ultrasound with Doppler. FINDINGS: LEFT LOWER EXTREMITY DEEP VENOUS SYSTEM: Respiratory variation, normal compression and augmented flow are noted throughout the lower extremity. The visualized common femoral vein, femoral vein, profunda femoral vein, popliteal vein and the calf veins show no evidence of deep venous thrombosis. There is no evidence of Fernandes's cyst. SUPERFICIAL VENOUS SYSTEM: The great saphenous vein is occluded from the access site to 1.2 m before the saphenofemoral junction. There is no extension of thrombus into the deep system. US/US venous duplex LE LT IMPRESSION: 1. No evidence of DVT. 2. Excellent appearance status post ablation of the left great saphenous vein. Electronically signed by: Lupillo Garcia MD 12/15/2023 02:46 PM EDT
== END 2023-12-11 15:25 | disposition home or self-care (01) ==
LOC: HO.US 15:24
PROVIDERS: PCP Internal Medicine; Visit Provider Surgery Vascular Surgery
DX: M79.605 Pain in left leg (principal)
CPT/HCPCS: 93971

== ENCOUNTER 2023-12-21 09:08 | Outpatient (AMB) | payer OTHER, SELFPAY ==
--- NOTE | 2023-12-21 09:10 | MHC.OFFVIS ---
Intake Visit Reasons: 2 wk follow up Left GSV RFA 12/08/23 Intake Note: Patient presents for 2 week follow up left gsv rfa performed on 12/08/23. Patient states she has some discomfort behind her knee. No other complaints. Accompanied by: Self / Same As Patient Allergies nifedipine Allergy (Intermediate, Verified 12/21/23 09:12) leg swelling/rash leflunomide [Arava] Adverse Reaction (Intermediate, Verified 12/21/23 09:12) low wbc methotrexate Adverse Reaction (Intermediate, Verified 12/21/23 09:12) low wbc HPI HPI 2 wk follow up Left GSV RFA 12/08/23: Details: Very pleasant 63-year-old female presents for follow-up regarding venous insufficiency. She most recently underwent left great saphenous radiofrequency ablation. She reports that both lower extremities feel better after intervention. Swelling and discomfort have decreased significantly. She now presents for routine postprocedure follow-up. Of note postprocedure ultrasound was negative for DVT PFSH Medical History Raynaud's disease Basal cell carcinoma Osteoporosis Rheumatoid arthritis Hypercholesterolemia Surgical History S/P hysterectomy H/O colonoscopy Family History Father Pacemaker Diabetes CVD (cardiovascular disease) Stroke Mother HTN (hypertension) Stroke Cancer Social History Housing: House Patient Tobacco Use Status: Never used Tobacco e-Cigarette/Vaping Use: Never Used Current occupational status: employed Cognitive needs: No Hearing needs: No Vision needs: Yes Review of Systems Const All systems reviewed & are unremarkable except as noted in HPI and below Reports no additional complaints ENT Reports Normal hearing present Card Denies chest pain, Denies chest pain at rest, Denies chest pain with activity and Denies pedal edema Resp Denies cough GI Denies abdominal pain Musc Denies abnormal gait, Denies muscle cramps and Denies radiating pain into limb Skin/Breast Denies skin ulcer and Denies wounds Neuro Reports Normal hearing present and Denies abnormal gait Psych Reports no additional complaints Physical Exam Const General: cooperative, healthy appearing and comfortable Orientation/consciousness: oriented to person, oriented to place and oriented to time HEENT Head: Yes normal to inspection Neck Neck: Yes normal visual inspection Carotids: no bruits Chest Chest palpation & inspection: normal inspection of the chest Resp Effort & Inspection: normal respiratory effort and able to speak in complete sentences Auscultation: clear to auscultation bilaterally, no crackles, no rales, no rhonchi and no wheezes Cardio Rate: regular rate Rhythm: regular rhythm Heart sounds: S1 normal heart sound present and S2 normal heart sound present Bruits: no carotid bruits Peripheral pulses: Peripheral pulses 2+ throughout GI Inspection: Yes normal to inspection Skin Wounds: no wounds Hair: normal Neuro General: oriented to person, oriented to place and oriented to time Cranial nerves: Yes CN's II-XII intact bilaterally and Yes Normal hearing present Cognition (Neuro): normal cognition Motor exam (neuro): 5/5 motor strength present throughout Extrem Other: venous exam: No significant superficial varicosities or spider telangiectasias, minimal edema General: No clubbing, No cyanosis and No edema Psych Appearance: grossly normal Mental Status: mental status grossly normal Speech and movement: Normal speech and movement present Assessment & Plan Assessment & Plan (1) Varicose veins of right lower extremity with inflammation: Comment: 07/07/2023 - right small saphenous vein radiofrequency ablation Code(s): I83.11 - Varicose veins of right lower extremity with inflammation Category: Medical Plan: See below (2) Varicose veins of left lower extremity with inflammation: Comment: 12/08/2023 - left great saphenous vein radiofrequency ablation Code(s): I83.12 - Varicose veins of left lower extremity with inflammation Category: Medical Plan: The patient has done extremely well with all venous treatments. Patient's may often experience postprocedure phlebitic episodes and I have discussed with the patient use of warm compresses and NSAIDS if tolerated for pain discomfort. In addition, I have discussed continued conservative measures including use of compression, leg elevation, and exercise. The patient was also given an information sheet regarding appropriate use of compression stockings and future purchases. Thank you for allowing us to care for your patient with venous disease. Coding Level of Care Code Est Pt Level 3 (90362) Diagnoses Varicose veins of right lower extremity with inflammation I83.11 Varicose veins of left lower extremity with inflammation I83.12
== END 2023-12-21 09:27 | disposition home or self-care (01) ==
PROVIDERS: PCP Internal Medicine; Visit Provider Surgery Vascular Surgery
DX: I83.11 Varicose veins of right lower extremity with inflammation (principal); I83.12 Varicose veins of left lower extremity with inflammation
CPT/HCPCS: 99213

== ENCOUNTER → 2023-12-21 09:08 | Outpatient (BNVA) | payer OTHER, SELFPAY | PROVIDERS: PCP Internal Medicine; Visit Provider Surgery Vascular Surgery ==

== ENCOUNTER 2024-03-20 08:21 | Outpatient (REF) | payer OTHER, SELFPAY ==
[2024-03-20 13:43] LABS: MANUAL DIFF FLAG NO
[2024-03-20 13:54] LABS: Basophils Percent Auto 0.6 % (0-2); Eosinophils Absolute Auto 0.1 X10*3/uL (0.0-0.4); Eosinophils Percent Auto 2.3 % (0-4); Hematocrit 39.7 % (37.0-47.0); Imm Gran Abs Auto 0.01 X10*3/uL (0.00-0.03); Imm Gran Pct Auto 0.2 % (0.0-0.4); Lymphocytes Absolute Auto 1.6 X10*3/uL (1.2-4.9); Lymphocytes Percent Auto 34.5 % (20-40); Mean Corpuscular HGB Conc 32.7 g/dl (31.0-35.0); Mean Corpuscular Hemoglobin 30.6 pg (27.0-33.0); Mean Corpuscular Volume 93.4 fL (80.0-98.0); Mean Platelet Volume 10.7 fL (9.4-12.3); Monocytes Absolute Auto 0.5 X10*3/uL (0.1-1.2); Monocytes Percent Auto 10.2 % (2-11); Neutrophils Absolute Auto 2.5 x10*3/uL (2.0-8.3); Neutrophils Percent Auto 52.2 % (45-73); Platelet Count 329 X10*3/uL (160-400); Red Blood Count 4.25 X10*6/uL (4.20-5.50); Red Cell Distribution Width 12.6 % (11.0-16.0); White Blood Count 4.7 X10*3/uL (4.8-10.8)
[2024-03-20 14:07] LABS: Alanine Aminotransferase 28 U/L (0-31); Albumin Level 4.2 g/dL (3.5-5.0); Alkaline Phosphatase 53 U/L (39-117); Anion Gap 10 (12-20); Aspartate Amino Transferase 35 U/L (5-31); Bilirubin Total 0.5 mg/dL (0.0-1.0); Blood Urea Nitrogen 14 mg/dL (9-16); Calcium 9.6 mg/dL (8.4-10.2); Carbon Dioxide 28 mmol/L (22-29); Chloride 107 mmol/L (96-108); Cholesterol 184 mg/dL (<200); Estimated Glomerular Filt Rate > 60; Glucose Fasting 80 mg/dL (60-99); HDL Cholesterol 64 mg/dL (>40); LDL Cholesterol Calculated 107 mg/dL (<100); Sodium 141 mmol/L (135-145); Total Protein 8.1 g/dL (6.5-8.0); Triglycerides 67 mg/dL (<150)
== END 2024-03-20 08:22 | disposition home or self-care (01) ==
LOC: HO.HMGCLDS 08:21
PROVIDERS: PCP Internal Medicine; Visit Provider Internal Medicine
DX: Z00.00 Encounter for general adult medical examination without abnormal findings (principal); Z23 Encounter for immunization; E78.00 Pure hypercholesterolemia, unspecified; M06.9 Rheumatoid arthritis, unspecified; M81.0 Age-related osteoporosis without current pathological fracture
CPT/HCPCS: 36415; 80053; 80061; 85025; 90471; 90677; 96127

== ENCOUNTER 2024-03-20 08:21 | Outpatient (AMB) | payer OTHER, SELFPAY ==
--- NOTE | 2024-03-20 08:24 | A.OFFPC_ITS ---
Vital Signs 03/20/24 08:27 Height 5 ft 8 in Weight 128 lb BMI 19.5 BP 118/78 Blood Pressure Location Lt brachial Position Sitting Pulse 76 Pulse Source Pulse Oximeter Pulse Oximetry (%) 100 Oxygen Delivery Method Room Air Intake Visit Reasons: Annual PE Intake Note: Pt is here today for PE. Allergies nifedipine Allergy (Intermediate, Verified 03/20/24 08:29) leg swelling/rash leflunomide [Arava] Adverse Reaction (Intermediate, Verified 03/20/24 08:29) low wbc methotrexate Adverse Reaction (Intermediate, Verified 03/20/24 08:29) low wbc Medication List - Last Reconciled 03/20/24 by Kae Martell MD adalimumab 40 mg subcut Q2W calcium 26-vit D3-magnesium 15 167 mg calcium- 1.67 mcg-83 mg caps PO cholecalciferol (vitamin D3) 10 mcg PO DAILY compress.stocking,knee,reg,med As directed 10-20mmHg hydroxychloroquine 300 mg PO DAILY multivitamin (One Daily Multivitamin tablet) 1 tab PO DAILY simvastatin 10 mg PO DAILY Tobacco use date assessed: 03/20/24 Fall risk assessment: No Falls in past year Last assessed Fall Risk: 03/20/24 Dental Screening Dental Screen Date: 03/20/24 Did you have a dental visit in the last 12 months?: Yes Did you have a dental problem in the last 6 months where you did not have access to dental care?: No Was dental information given to patient?: Patient has dentist HPI Annual PE HPI Details Pt presents for PE. RA is controlled on current medications patient follows up with track repair person. She has been getting Reclast infusion for the last 3 years for osteoporosis and will have repeated DEXA this year. Patient follows up with track repair person for osteoporosis. [facility] Medical History (Updated 03/20/24 @ 09:36 by Kae Martell MD) Raynaud's disease Basal cell carcinoma Osteoporosis Rheumatoid arthritis Hypercholesterolemia Surgical History (Updated 03/20/24 @ 09:36 by Kae Martell MD) S/P hysterectomy H/O colonoscopy Family History Father Pacemaker Diabetes CVD (cardiovascular disease) Stroke Mother HTN (hypertension) Stroke Cancer Social History Housing: House Patient Tobacco Use Status: Never used Tobacco e-Cigarette/Vaping Use: Never Used service: No Current occupational status: employed Cognitive needs: No Hearing needs: No Vision needs: Yes Questionnaire PHQ-9 Over the last 2 weeks, how often have you been bothered by any of the following problems? 1. Little interest or pleasure in doing things: not at all 2. Feeling down, depressed, or hopeless: not at all 3. Trouble falling or staying asleep, or sleeping too much: not at all 4. Feeling tired or having little energy: not at all 5. Poor appetite or overeating: not at all 6. Feeling bad about yourself - or that you are a failure or have let yourself or your family down: not at all 7. Trouble concentrating on things, such as reading the newspaper or watching television: not at all 8. Moving or speaking so slowly that other people could have noticed. Or the opposite - being so fidgety or restless that you have been moving around a lot more than usual: not at all 9. Thoughts that you would be better off or of hurting yourself in some way: not at all Total score: 0 Depression Screening Interpretation: Negative Depression Screening Done: Yes 11959 - PHQ-9 Billing: Yes Source: Developed by Drs. Art Johnson, Alla Cooper, Rodríguez Wu and colleagues, with an educational tyrell from [employer]. Thrive Questionnaire Date Thrive assessed: 03/20/24 I am a: Patient What is your living situation today?: I have a steady place to live Within the past 12 months, did the food you bought not last and you didn't have the money to get more?: Never true Within the past 12 months, did you worry whether your food would run out before you got money to buy more?: Never true Do you have trouble paying for medicines?: No Do you have trouble getting transportation to medical appointments?: No Do you have trouble paying your heating and electricity bill?: No Do you have trouble taking care of your child, family member or friend?: No Do you have trouble with day-to-day activities such as bathing, preparing meals, shopping, managing finances, etc.?: No Are you currently unemployed and looking for a job?: No Are you interested in more education?: No Please select the resources that you would like help with: None Currently or been in a relationship where the following occur: No concerns reported THRIVE Score: 0 AUDIT C Alcohol Use Questionnaire (AUDIT-C) 1. How often do you have a drink containing alcohol?: Monthly or less 2. How many drinks containing alcohol do you have on a typical day when you are drinking?: 1 or 2 3. How often do you have six or more drinks on one occasion?: Never Total Score: 1 DELFINO-7 AMB Questionnaire DELFINO-7 Date DELFINO - 7 assessed: 03/20/24 Feeling nervous, anxious, or on edge: 0 = Not at all Not being able to stop or control worryin = Not at all Worrying too much about different things: 0 = Not at all Trouble relaxin = Not at all Being so restless that it is hard to sit still: 0 = Not at all Becoming easily annoyed or irritable: 0 = Not at all Feeling afraid as if something awful might happen: 0 = Not at all Total DELFINO-7 score (0-4 normal; 5-9 mild; 10-14 moderate; 15-21 severe): 0 Source: Developed by Drs. Art Johnson, Alla Cooper, Rodríguez Wu and colleagues, with an educational tyrell from [employer]. DELFINO-7 Assessment Billing DELFINO-7 Assessment Tool: DELFINO-7 Assessment 18343 Review of Systems Const All systems reviewed & are unremarkable except as noted in HPI and below Eyes Reports no additional complaints ENT Reports no additional complaints Card Reports no additional complaints Resp Reports no additional complaints GI Reports no additional complaints Reports no additional complaints Physical exam (Primary Care) Vital Signs: Last Vital Signs Pulse 76 03/20/24 08:27 BP 118/78 03/20/24 08:27 Pulse Ox 100 03/20/24 08:27 Oxygen Delivery Method Room Air 03/20/24 08:27 BMI result Body Mass Index 19.5 Tobacco/Smoking Status: Tobacco use Status Tobacco use date assessed 03/20/24 03/20/24 08:34 Patient Tobacco Use Status Never used Tobacco 03/20/24 08:25 e-Cigarette/Vaping Use Never Used 03/20/24 08:25 PHQ-9: PHQ-9 Score PHQ-9: Total score 0 01/22/25 09:12 Depression Screening Interpretation: Negative Thrive Assessment: Date of Thrive Assessment Date Thrive assessed 03/20/24 03/20/24 08:34 Currently or been in a relationship where the following occur: No concerns reported Const General: no acute distress HENMT Head: Yes normal to inspection Ears: hearing grossly normal bilaterally Face and sinus: Yes normal facial exam Mouth: Normal oral and palatal mucosa present Throat: Yes posterior oropharynx normal Eyes General: appearance normal, both eyes and all related structures Neck Neck: Yes no lymphadenopathy and Yes supple Resp Effort & Inspection: normal respiratory effort Auscultation: clear to auscultation bilaterally Cardio Rhythm: regular rhythm Heart sounds: S1 normal heart sound present and S2 normal heart sound present GI Inspection: Yes normal to inspection Palpation (GI): Soft to palpation Percussion: Yes normal to percussion Auscultation: normal bowel sounds Immunizations pneumoc 20-eunice conj-dip cr(PF) 0.5 mL IM syringe Performing Provider: Kae Martell MD Performing Location: [facility] Administered by: TWYLA Thomas on 03/20/24 09:25 Dose Route Admin Location Dispensed Lot Number Expiration Date [facility] Anode Adjuster 0.5 mL IM Left Deltoid 0.5 mL [id number] 06/26/25 [employer] VIS Given Date VIS Provided VIS Publication Date 03/20/24 Single Vaccine 21 Eligibility Eligibility Date Funding Source Not [facility] Eligible 03/20/24 Private Coding Level of Care Code Est Pt Prev Care >65y(04847) Diagnoses Hypercholesterolemia E78.00 Rheumatoid arthritis M06.9 Annual physical exam Z00.00 H/O colonoscopy Z98.890 Osteoporosis M81.0 Additional Codes DELFINO-7 Assessment Billing - DELFINO-7 Assessment Tool: DELFINO-7 Assessment 42971 ([id number]) PHQ-9 - 58645 - PHQ-9 Billing: Yes ([id number]) Assessment & Plan Assessment & Plan (1) Hypercholesterolemia: Code(s): E78.00 - Pure hypercholesterolemia, unspecified Category: Medical Plan: Continue statin check lipid profile today and in 1 year. (2) Rheumatoid arthritis: Comment: Dr. Bear Code(s): M06.9 - Rheumatoid arthritis, unspecified Category: Medical Plan: Continue current medications follow-up with Rheumatology (3) Annual physical exam: Code(s): Z00.00 - Encounter for general adult medical examination without abnormal findings Category: Medical Plan: Well-balanced diet regular physical activity discussed with the patient. She is up-to-date with mammogram and will have colonoscopy next week (4) H/O colonoscopy: Comment: 2013 Diverticulosis, internal hemmorhoids, repeat 2023 Dr. Escamilla Code(s): Z98.890 - Other specified postprocedural states Category: Surgical Plan: Colonoscopy scheduled for next week (5) Osteoporosis: Comment: 09/2017 DEXA , repeat DEXA 2021, getting Reclast infusions 04/21- 2024 (3 years), recheck DEXA 2024 by rheumatology Code(s): M81.0 - Age-related osteoporosis without current pathological fracture Category: Medical Plan: Continue weight-bearing exercises, vitamin-D supplement and follow-up with track repair person for a repeat DEXA Orders: Orders Comprehensive [place]. Panel Fast Today E78.00 - Pure hypercholesterolemia, unspecified, M06.9 - Rheumatoid arthritis, unspecified, Z00.00 - Encounter for general adult medical examination without abnormal findings Pneumococcal 20 Immunization Today Z23 - Encounter for immunization Complete Blood Count Auto Diff 1 Year E78.00 - Pure hypercholesterolemia, unspecified, M81.0 - Age-related osteoporosis without current pathological fracture, Z00.00 - Encounter for general adult medical examination without abnormal findings Lipid Panel 1 Year E78.00 - Pure hypercholesterolemia, unspecified, M81.0 - Age-related osteoporosis without current pathological fracture, Z00.00 - Encounter for general adult medical examination without abnormal findings Complete Blood Count Auto Diff Today E78.00 - Pure hypercholesterolemia, unspecified, M06.9 - Rheumatoid arthritis, unspecified, Z00.00 - Encounter for general adult medical examination without abnormal findings Lipid Panel Today E78.00 - Pure hypercholesterolemia, unspecified, M06.9 - Rheumatoid arthritis, unspecified, Z00.00 - Encounter for general adult medical examination without abnormal findings Comprehensive [place]. Panel Fast 1 Year E78.00 - Pure hypercholesterolemia, unspecified, M81.0 - Age-related osteoporosis without current pathological fracture, Z00.00 - Encounter for general adult medical examination without abnormal findings
[2024-03-20 08:27] VITALS: BP 118/78; PULSE 76; O2SAT 100; BMI 19.5
--- OUTSIDE RECORDS SUMMARY | 2024-03-20 08:27 | XMS_ITS ---
Author Organization [facility] Address [address] [place] [id number] Care Team Providers Care Personnel Arbitrator Name Role Phone Kae Martell MD Primary Care Provider Art Hinds Unavailable [phone] REASON FOR VISIT Colon with a 2 day prep Encounters Encounter Location Date Provider Diagnosis [facility] [address] [place] [phone] 11/12/2023 Art Escamilla PLAN OF TREATMENT Next Appt Details Provider Name:Art Escamilla , 03/25/2024 07:30:00 AM, [address] [facility] , [place], [place], [phone],
--- OUTSIDE RECORDS SUMMARY | 2024-03-20 08:28 | XMS_ITS | Patient Health Record ---
Author Organization [facility] Address [address] [place] [address] Care Team Providers Care Evaluation Specialist Name Role Phone Kae Martell MD Primary Care Provider Art Hinds Unavailable [phone] ALLERGIES No Known Allergies REASON FOR REFERRAL No Information MEDICATIONS Medication SIG (Take, Route, Frequency, Duration) Notes Start Date End Date Status Simvastatin 10 MG 1 tablet in the even ing Orally Once a day Active Vitamin D3 25 MCG (1000 UT) 1 tablet Ora lly Once a day for 30 day(s) Active Multivitamin - 1 tablet Orally Once a day Active Hydroxychloroquine Sulfate 200 MG Oral for 90 Active Humira (2 Pen) 40 MG/0.4ML as directed Subcutaneous Q 3 weeks Active SOCIAL HISTORY Sex Assigned At : Social History Observation Description Sex Assigned At Unknown PROBLEMS Problem Type ICD Code Onset Dates Problem Status W/U Status Risk SNOMED Code Notes Problem Colon cancer screening (Z12.11) Active confirmed Colon can cer screening (712353296) Problem Encounter for other preprocedural examination (Z01.818) Active confirmed Pre-procedure evaluation check (815068803) Problem Diverticulosis of large intestine without perforation or abscess without bleeding (K57.30) Active confirmed Diverticul ar disease of colon (774347821) VITAL SIGNS Blood pressure diastolic 00 mm Hg 07/04/2023 Height 68 in 07/04/2023 Blood pressure systolic 00 mm Hg 07/04/2023 Weight 127 lbs 07/04/2023 BMI 19.31 kg/m2 07/04/2023 Encounters Encounter Location Date Provider Diagnosis [facility] Outpatient [address] [place] [address] [place] [phone] 11/06/2023 Art Escamilla Colon cancer screeni ng Z12.11 and Diverticulosis of large intestine without perforation or abscess without bleeding K57.30 [facility] [address] [place] [address] 07/04/2023 Art Escamilla Colon cancer screeni ng Z12.11 and Encounter for other preprocedural examination Z01.818 [facility] [address] [place] [address] 11/12/2023 Art Escamilla ASSESSMENTS Encounter Date Diagnosis Assessment Notes Treatment Notes Treatment Clinical Notes 11/06/2023 Colon cancer screening (ICD-10 - Z12.11) 11/06/2023 Diverticulosis of large intestine without perforation or abscess without bleeding (ICD-10 - K57.30) 07/04/2023 Colon cancer screening (ICD-10 - Z12.11) 07/04/2023 Encounter for other preprocedural examination (ICD-10 - Z01.818) PLAN OF TREATMENT Future Test Test Name Order Date COLONOSCOPY 09/25/2013 COLONOSCOPY 07/04/2023 Next Appt Details Provider Name:Art Escamilla , 03/25/2024 07:30:00 AM, [address] [facility] , [place], [place], [phone], Insurance Providers Payer Name Payer Address Payer Phone Subscriber Number Group Number Insured Name Patient Relationship to Insured Coverage Start Date Coverage End Date [facility] [address] [place] [address] [id number] [facility] [place] Self - patient is the insured MEDICAL (GENERAL) HISTORY Medical History History ICD Code Denies NH,DM,CVA,Lung disease,renal dise ase Rheumatoid arthritis Hyperlipidemia Negative screening colonoscopy in 2013 Surgical History Surgery Date(Month/Year) Ovarian cyst removal VERA with BSO LE vein surgery with Dr. Leiva
--- OUTSIDE RECORDS SUMMARY | 2024-03-20 08:28 | XMS_ITS ---
Author Organization [facility] Address [address] [place] [address] Care Team Providers Care Erp Technical Lead Name Role Phone Kae Martell MD Primary Care Provider Art Hinds [phone] REASON FOR VISIT screening PROBLEMS Problem Type ICD Code Onset Dates Problem Status W/U Status Risk SNOMED Code Notes Problem Diverticulosis of large intestine without perforation or abscess without bleeding (K57.30) Active confirmed Diverticul ar disease of colon (588144171) Encounters Encounter Location Date Provider Diagnosis [facility] Outpatient [address] [place] [phone] 11/06/2023 Art Escamilla Colon cancer scree sara Z12.11 and Diverticulosis of large intestine without perforation or abscess without bleeding K57.30 ASSESSMENTS Encounter Date Diagnosis Assessment Notes Treatment Notes Treatment Clinical Notes 11/06/2023 Colon cancer screening (ICD-10 - Z12.11) 11/06/2023 Diverticulosis of large intestine without perforation or abscess without bleeding (ICD-10 - K57.30) PLAN OF TREATMENT Next Appt Details Provider Name:Art Escamilla , 03/25/2024 07:30:00 AM, [address] [place] [address], [phone],
--- OUTSIDE RECORDS SUMMARY | 2024-03-20 08:28 | XMS_ITS ---
Author Organization [facility] Address [address] [place] [address] Care Team Providers Care Lead Man [employer] Name Role Phone Kae Martell MD Primary Care Provider Art Hinds [phone] ALLERGIES No Known Allergies REASON FOR VISIT Patient presents today for a colon screening MEDICATIONS Medication SIG (Take, Route, Frequency, Duration) [...] as directed Subcutaneous Q 3 weeks Active PROBLEMS Problem Type ICD Code Onset Dates Problem Status W/U Status Risk SNOMED Code Notes Problem Colon cancer screening (Z12.11) Active confirmed Colon cancer screening (515193837) Problem Encounter for other preprocedural examination (Z01.818) Active confirmed Pre-procedure evaluation check (309873407) VITAL SIGNS BMI 19.31 kg/m2 07/04/2023 Blood pressure systolic 00 mm Hg 07/04/19 24 Blood pressure diastolic 00 mm Hg 024 Height 68 in 07/04/2023 Weight 127 lbs 07/04/2023 Encounters Encounter Location Date Provider Diagnosis [facility] [address] [place] [address] 07/04/2023 Art Escamilla Colon cancer screeni ng Z12.11 and Encounter for other preprocedural examination Z01.818 ASSESSMENTS Encounter Date Diagnosis Assessment Notes Treatment Notes Treatment Clinical Notes 07/04/2023 Colon cancer screening (ICD-10 - Z12.11) 07/04/2023 Encounter for other preprocedural examination (ICD-10 - Z01.818) PLAN OF TREATMENT Future Test Test Name Order Date COLONOSCOPY 07/04/2023 Next Appt Details Follow Up: prn, Reason: Provider Name:Art Neal Andi , 03/25/2024 07:30:00 AM, [address] [place] [address], [phone], Progress Notes * Examination Category Sub-Category Detail Notes General Examination GENERAL APPEARANCE: pleasant , well nourished, well developed, in no acute distress HEAD: EYES: sclera non-icteric EARS: NOSE: THROAT: NECK/THYROID: no cervical lymphade nopathy, neck supple HEART: S1, S2 normal CHEST: LUNGS: clear to auscultatio n bilaterally ABDOMEN: normal bowel sounds, no guarding or rigidity, no guarding or rigidity, no masses palpable, soft, nontender, nondistended NEUROLOGIC: alert and oriented SKIN: nonjaundiced, no spi amado angiomata EXTREMITIES: no edema PERIPHERAL PULSES: BACK: BREASTS: MUSCULOSKELETAL: MALE GENITOURINARY: LYMPH NODES: RECTAL EXAM: FEMALE GENITOURINARY: ORAL CAVITY: mucosa moist
== END 2024-03-20 09:27 | disposition home or self-care (01) ==
PROVIDERS: PCP Internal Medicine; Visit Provider Internal Medicine
DX: E78.00 Pure hypercholesterolemia, unspecified (principal); M06.9 Rheumatoid arthritis, unspecified; Z00.00 Encounter for general adult medical examination without abnormal findings; Z98.890 Other specified postprocedural states; M81.0 Age-related osteoporosis without current pathological fracture; Z23 Encounter for immunization

== ENCOUNTER 2024-03-25 06:24 | Day surgery (SDC) | payer OTHER, SELFPAY ==
[2024-03-21 14:46] VITALS: BMI 19.3
--- NOTE | 2024-03-22 09:06 | P.CONAN_ITS ---
Documented by User: Mirna Roman NP 03/22/24 09:09 HPI - Anesthesia Eval Consult details Narrative: 64yo F for Colonoscopy s/p colo 10/2023 with MAC PMFSH Active Problems Active Problems: All Active Problems Varicose veins of left lower extremity with inflammation (Acute) Varicose veins of right lower extremity with inflammation (Acute) Varicose veins of bilateral lower extremities with pain (Acute) Localized swelling of right lower extremity (Acute) Hx of screening mammography (Acute) Annual physical exam (Acute) Osteoporosis (Acute) H/O colonoscopy (Acute) Rheumatoid arthritis (Acute) Basal cell carcinoma (Acute) Hypercholesterolemia (Acute) Past Medical History Medical History (Updated 03/20/24 @ 09:36 by Kae Martell MD) Raynaud's disease Basal cell carcinoma Osteoporosis Rheumatoid arthritis Hypercholesterolemia Family History Family History Father Pacemaker Diabetes CVD (cardiovascular disease) Stroke Mother HTN (hypertension) Stroke Cancer Family history of problems with anesthesia: No Surgical History Surgical History (Updated 03/21/24 @ 14:47 by Ginette Warner RN) Hx of ligation of vein Hx of ovarian cystectomy S/P hysterectomy H/O colonoscopy History of Problems with Anesthesia: No Social History Social History Housing: House Patient Tobacco Use Status: Never used Tobacco e-Cigarette/Vaping Use: Never Used Are you DNR?: No Advance Directives: No Advance Directives Information Provided: Yes service: No Current occupational status: employed Cognitive needs: No Hearing needs: No Vision needs: Yes Meds Allergies Allergy/AdvReac Type Severity Reaction Status Date / Time nifedipine Allergy Intermediate leg Verified 03/20/24 08:29 swelling/rash leflunomide [Arava] AdvReac Intermediate low wbc Verified 03/20/24 08:29 methotrexate AdvReac Intermediate low wbc Verified 03/20/24 08:29 Home Medications ?Medication ?Instructions ?Recorded ?Confirmed ?Last Taken ?Type adalimumab 40 mg/0.4 mL 40 mg subcut Q2W 05/11/20 03/21/24 Unknown History subcutaneous pen kit hydroxychloroquine 200 mg tablet 300 mg PO DAILY 05/11/20 03/21/24 Unknown History calcium 167 mg-vitamin D3 1.67 1 cap PO DAILY 05/23/23 03/21/24 Unknown History mcg-magnesium 83 mg capsule cholecalciferol (vitamin D3) 10 10 mcg PO DAILY 05/23/23 03/21/24 Unknown History mcg (400 unit) capsule multivitamin (One Daily 1 tab PO DAILY 05/23/23 03/21/24 Unknown History Multivitamin tablet) Exam Height,Weight and Vital Signs: Height 5 ft 8 in Weight 57.606 kg Pertinent Lab Results Pertinent Lab Results: Laboratory Tests 03/20/24 09:35 WBC 4.7 L Hgb 13.0 Hct 39.7 Plt Count 329 Sodium 141 Potassium 4.0 Chloride 107 Carbon Dioxide 28 BUN 14 Creatinine 0.71 Assessment and Plan Assessment Anesthesia Assessment: Chart Reviewed Final Anesthetic Review Family History of Problems with Anesthesia: No History of Problems with Anesthesia: No Documented by User: Alban Taylor MD 03/25/24 08:07 [facility] Past Medical History Medical History (Updated 03/20/24 @ 09:36 by Kae Martell MD) Raynaud's disease Basal cell carcinoma Osteoporosis Rheumatoid arthritis Hypercholesterolemia Family History Family History Father Pacemaker Diabetes CVD (cardiovascular disease) Stroke Mother HTN (hypertension) Stroke Cancer Surgical History Surgical History (Updated 03/21/24 @ 14:47 by Ginette Warner RN) Hx of ligation of vein Hx of ovarian cystectomy S/P hysterectomy H/O colonoscopy History of Problems with Anesthesia: Yes (PONV. Does OK w propofol.) Social History Social History Housing: House Patient Tobacco Use Status: Never used Tobacco e-Cigarette/Vaping Use: Never Used Are you DNR?: No Advance Directives: No Advance Directives Information Provided: Yes service: No Current occupational status: employed Cognitive needs: No Hearing needs: No Vision needs: Yes Meds Allergies Allergy/AdvReac Type Severity Reaction Status Date / Time nifedipine Allergy Intermediate leg Verified 03/20/24 08:29 swelling/rash leflunomide [Arava] AdvReac Intermediate low wbc Verified 03/20/24 08:29 methotrexate AdvReac Intermediate low wbc Verified 03/20/24 08:29 Home Medications ?Medication ?Instructions ?Recorded ?Confirmed ?Last Taken ?Type adalimumab 40 mg/0.4 mL 40 mg subcut Q2W 05/11/20 03/21/24 Unknown History subcutaneous pen kit hydroxychloroquine 200 mg tablet 300 mg PO DAILY 05/11/20 03/21/24 Unknown History calcium 167 mg-vitamin D3 1.67 1 cap PO DAILY 05/23/23 03/21/24 Unknown History mcg-magnesium 83 mg capsule cholecalciferol (vitamin D3) 10 10 mcg PO DAILY 05/23/23 03/21/24 Unknown History mcg (400 unit) capsule multivitamin (One Daily 1 tab PO DAILY 05/23/23 03/21/24 Unknown History Multivitamin tablet) Exam Airway Mallampati Class: II TM Dist: <=3cm Neck ROM: Full Loose/Missing/Broken Teeth: No Heart: ok Lungs: ok Assessment and Plan Assessment Anesthesia Assessment: Anesthesia Plan Discussed Final Anesthetic Review History of Problems with Anesthesia: Yes (PONV. Does OK w propofol.) NPO: Yes ASA Class: II Final Preanesthetic Review: No Changes in Pt Med Stat, Meds/Allgs Chart Reviewed, Consent Obtained/Reviewed and Anes Risks/Benef Reviewed Patient Risk: Intermediate Procedure Risk: Low Anesthetic Plan Anesthetic Plan: MAC: and Agree w/ Assess. and Plan Disposition: Standard PACU
[2024-03-25 06:28] VITALS: BP 136/85; PULSE 84; RESP 20; TEMP 36.2; O2SAT 98
--- OUTSIDE RECORDS SUMMARY | 2024-03-25 06:37 | XMS_ITS ---
Author Organization [facility] Address [address] [place] [address] Care Team Providers Care Associate Professor Of Physics Name Role Phone Kae Martell MD Primary Care Provider Art Hinds [phone] REASON FOR VISIT screening PROBLEMS Problem Type ICD Code Onset Dates Problem Status W/U Status Risk SNOMED Code Notes Problem Diverticulosis of large intestine without perforation or abscess without bleeding (K57.30) Active confirmed Diverticul ar disease of colon (723403866) Encounters Encounter Location Date Provider Diagnosis [facility] Outpatient [address] [place] [id number] 11/06/2023 Art Escamilla Colon cancer scree sara [...] Provider Name:Art Escamilla , 03/25/2024 07:30:00 AM, [address] [place] [address], [phone],
--- OUTSIDE RECORDS SUMMARY | 2024-03-25 06:37 | XMS_ITS ---
Author Organization [facility] Address [address] [place] [address] Care Team Providers Care Bulk Station Operator Name Role Phone Kae Martell MD Primary Care Provider Art Hinds [phone] REASON FOR VISIT screening Encounters Encounter Location Date Provider Diagnosis [facility] [place] Outpatient [address] [place] [id number] 03/25/2024 Art Escamilla PLAN OF TREATMENT Next Appt Details Provider Name:Art Escamilla , 03/25/2024 07:30:00 AM, [address] [place] [address], [phone],
--- OUTSIDE RECORDS SUMMARY | 2024-03-25 06:37 | XMS_ITS | Continuity of Care Document ---
Author Organization [facility] Address [address] [place] [address] Phone Care Team Providers Care Supervisor Hot Dip Plating Name Role Phone Juan HITCHCOCK, ZANE, Art VILLA Unavailable U navailable Procedures Procedure Date Offic Cons New/estab Mod 40 Mi- CT & [place] Surgical Stockings CVR Reveal Knee High Duplex Scan-extrem Veins; Uni/ CT & [place] J Advance Directives Directive Yes / No Effective Date File Name Other Directive No 03/21/2024 N/A WARNING:The information contained in this section is historical and is provided for information only and does not constitute a legal document or any assurance that the information is still accurate. Please verify the information with the carrillo of the legal document before using it for clinical purposes. Encounters Encounter Description Practice Location Reason(s) For Visit Diagnoses Date Provider Providers Copied on Encounter Offic Cons New/estab Mod 40 Mi- CT & [place] [facility], [address] [place] [address] Dr [address], [place], [id number], [place] tel:[phone] [facility] [place] Chronic venous hypertension (idiopathic) with other complications of left lower extremity 5 Juan HITCHCOCK, ALLEN DEGROOT. [address], [address], [facility] [id number] , [place]. tel:[phone] Referring Provider: Kelley YOO C, [address], [place], [address]. tel:[phone] [facility], [address], [place], [id number], tel:[phone] [facility] - [place] Chronic venous hypertension (idiopathic) with other complications of left lower extremity Juan HITCHCOCK, RVT, RPVI Art. [address], [address], [place], [place], [id number] , [place]. tel:[phone] Referring Provider: Kelley Birch, [address], [place], [address]. tel:[phone] Family History Family Member Type Diagnosis Age At Onset No Information Payers Payer name Insurance type Covered alliance party [facility] [facility] [id number] Social History Type Description Quantity Date Captured Comments Alcohol Use Details Unknown Caffeine Use Details Unknown Tobacco Use Status Current non-smoker Smoking Status Never Smoker Non-Smoking Tobacco Use Details : No Details Available : No Details Available Sex Female Vital Signs Date / Time: Height Weight BMI Pulse Rate Blood Pressure Temperature Respiratory Rate Body Surface Area Head Circumference Head Circ. Percentile Wt./Lalo. Percentile BMI percentile Pulse Ox Inhaled Ox 8.160 kg (18.00 lbs) 2.83 kg/m eter (2) 122/76 mm[Hg] Chief Complaint And Reason For Visit No Information Reason For Referral Reason For Referral No Information History Of Present Illness Encounter Date Complaint History Of Prese nt Illness No Information Functional Status Date Functional Assessmen t No Information Instructions Date Instruction Additional Infor mation Pre and post instruc tions reviewed and provided Related to Chronic venous hypertension (idiopathic) with other complications of left lower extremity Patient education booklet given Related to Chronic venous hypertension (idiopathic) with other complications of left lower extremity Assessments Type Assessment Date No Information Patient Care Teams Name Effective Dates (start - stop) Status Members No Information
--- OUTSIDE RECORDS SUMMARY | 2024-03-25 06:37 | XMS_ITS | Patient Health Record ---
Author Organization [facility] Address [address] [place] [address] Care Team Providers Care Metal Casket Maker Name Role Phone Kae Martell MD Primary Care Provider Art Hinds Unavailable [phone] ALLERGIES No Known Allergies REASON FOR REFERRAL [...] (Z12.11) Active confirmed Colon can cer screening (967953305) Problem Encounter for other preprocedural examination (Z01.818) Active confirmed Pre-procedure evaluation check (069869511) Problem Diverticulosis of large intestine without perforation or abscess without bleeding (K57.30) Active confirmed Diverticul ar disease of colon (983832969) VITAL SIGNS Blood pressure diastolic 00 mm Hg 07/04/2023 Height 68 in 07/04/2023 Blood pressure systolic 00 mm Hg 07/04/2023 Weight 127 lbs 07/04/2023 BMI 19.31 kg/m2 07/04/2023 Encounters Encounter Location Date Provider Diagnosis [facility] Outpatient [address] [place] [id number] 11/06/2023 Art Escamilla Colon cancer screeni ng Z12.11 and Diverticulosis of large intestine without perforation or abscess without bleeding K57.30 [facility] Outpatient [address] [place] [id number] 03/25/2024 Art Escamilla [facility] [address] [place] [phone] 07/04/2023 Art Escamilla Colon cancer screeni ng Z12.11 and Encounter for other preprocedural examination Z01.818 [facility] [address] [place] [phone] 11/12/2023 Art Escamilla ASSESSMENTS Encounter Date Diagnosis [...] Provider Name:Art Escamilla , 03/25/2024 07:30:00 AM, [address] [place] [address] , [place], [place], [phone], Insurance Providers Payer Name Payer Address Payer Phone Subscriber Number Group Number Insured Name Patient Relationship to Insured Coverage Start Date Coverage End Date [facility] [address] [place] [phone] [id number] [facility] [place] Self - patient is the insured MEDICAL (GENERAL) HISTORY Medical History History ICD Code Denies [place],DM,CVA,Lung disease,renal dise ase Rheumatoid arthritis Hyperlipidemia Negative screening colonoscopy in 2013 Surgical History Surgery Date(Month/Year) Ovarian cyst removal VERA with BSO LE vein surgery with Dr. Leiva
--- OUTSIDE RECORDS SUMMARY | 2024-03-25 06:37 | XMS_ITS ---
Author Organization [facility] Address [address] [place] [address] Care Team Providers Care Environmental Sampling Technician Name Role Phone Kae Martell MD Primary Care Provider Art Hinds Unavailable [phone] REASON FOR VISIT Colon with a 2 day prep Encounters Encounter Location Date Provider Diagnosis [facility] [address] [place] [phone] 11/12/2023 Art Escamilla PLAN OF TREATMENT Next Appt Details Provider Name:Art Escamilla , 03/25/2024 07:30:00 AM, [address] , [place], [place], [phone],
[2024-03-25 09:05] VITALS: BP 122/70; PULSE 77; RESP 18; TEMP 36.2; O2SAT 100
--- NOTE | 2024-03-25 09:08 | P.BOP_ITS ---
Brief Operative Note Date of Service: 03/25/24 Pre-op diagnosis: Screening Post-op diagnosis: other (Diverticulosis) Procedure: Colonoscopy to the cecum and TI Surgeon: Art Escamilla MD Anesthesia: MAC Was an Vehicle Maintenance Supervisor used for this Procedure?: No Estimated blood loss (mL): 0 Pathology: none sent Condition: stable Disposition: PACU
[2024-03-25 09:18] VITALS: BP 125/65; PULSE 70; RESP 18; O2SAT 100
--- NOTE | 2024-03-25 09:32 | OP_ITS ---
DATE OF SERVICE: 03/25/2024 SURGEON: Art Escamilla MD INDICATIONS: The patient presents for evaluation of colorectal cancer screening. Full consent has been obtained from her for this, including risks of bleeding and perforation. PREOPERATIVE DIAGNOSIS: Colorectal cancer screening. POSTOPERATIVE DIAGNOSIS: PROCEDURE PERFORMED: Colonoscopy to the cecum and terminal ilium. ESTIMATED BLOOD LOSS: COMPLICATIONS: ANESTHESIA: Monitored anesthesia care. ASSISTANTS: SPECIMENS: POSTOPERATIVE DIAGNOSES: Colorectal cancer screening, diffuse diverticulosis, small internal hemorrhoids. DESCRIPTION OF PROCEDURE: The patient was placed in the left lateral decubitus position. The digital rectal exam revealed no abnormalities. The Olympus video pediatric colonoscope was entered into the rectum and advanced to the cecum with the assistance of abdominal wall pressure. Advancement past the sigmoid colon was difficult. Once in the cecum, I did identify normal-appearing cecal pouch with appendiceal orifice and a normal-appearing ileocecal valve. The terminal ileum was cannulated and appeared normal. The scope was withdrawn back in the colon. There was transillumination of light deep in the right lower quadrant. The entire cecum and ileocecal valve appeared normal. The scope was slowly withdrawn assessing all mucosal surfaces carefully. After some suctioning and irrigation, the preparation for the most part was excellent after her 2 day prep. She had diverticulosis extending from the distal sigmoid colon all the way to the ascending colon just outside of the cecum. I did not visualize any sign of polyps, colitis, nor angiodysplasia. In the rectum, scope was retroflexed visualizing internal hemorrhoids, but no other pathology. The rectal mucosa appeared normal. The scope was straightened and withdrawn from the patient. She tolerated the procedure well and was returned to the recovery area in stable condition. IMPRESSION: 1. Diverticulosis. 2. Internal hemorrhoids. PLAN: Given today's negative exam and no family history of colon cancer, I would recommend a followup colonoscopy in 10 years for further screening. She will otherwise see me on a p.r.n. basis. She was advised to continue a bowel regimen with some supplemental fiber, stool softeners, and plenty of water throughout the day. MD ISABELLA GuptaW/MODL / [id number]
[2024-03-25 09:33] VITALS: BP 130/73; PULSE 74; RESP 16; TEMP 36.4; O2SAT 100
== END 2024-03-25 10:16 | disposition home or self-care (01) ==
PROVIDERS: PCP Internal Medicine; Visit Provider Internal Medicine
PROC: 0DJD8ZZ Inspection of Lower Intestinal Tract, Via Natural or Artificial Opening Endoscopic (ICD-10-PCS; CPT 45378; principal; 2024-03-25 07:30)
DX: Z12.11 Encounter for screening for malignant neoplasm of colon (principal); K57.30 Diverticulosis of large intestine without perforation or abscess without bleeding; K64.8 Other hemorrhoids; E78.5 Hyperlipidemia, unspecified; M06.9 Rheumatoid arthritis, unspecified; Z79.620 Long term (current) use of immunosuppressive biologic; Z79.899 Other long term (current) drug therapy; Z98.890 Other specified postprocedural states
CPT/HCPCS: 45378; J2003; J2704